=== PATIENT | female | born 1950 | race Caucasian/White ===

== ENCOUNTER 2017-11-28 01:18 | Emergency (ER) | payer MEDICARE, OTHER ==
[~2017-11-28] VITALS: Ht 172.7 cm; Wt 112.3 kg
--- OUTSIDE RECORDS SUMMARY | ~2017-11-28 | XMS | Clinical Summary ---
Demographics + + + | Address | [address] | | | [place] [address] | + + + | Home Phone | | + + + | Preferred Language | Unknown | + + + | Marital Status | | + + + | Alevism Affiliation | 1001 | + + + | Race | Unknown | + + + | Ethnic Group | Unknown | + + + Author + + + | Author | [facility] | | | and [place] | + + + | Organization | [facility] | | | and [place] | + + + | Address | Unknown | + + + | Phone | Unavailable | + + + Support + + + + + | Name | Relationship | Address | Phone | + + + + + | Holger Garcia | ECON | [address] | | | | [place] | | | | | [address] | | + + + + + | Melanie Montes | ECON | Unknown | | + + + + + Care Team Providers + +------+ + | Care Cutter Operator Tile Name | Role | Phone | + +------+ + | Stacy Bean MD | PP | | + +------+ + Allergies + + + + + + | Active Allergy | Reactions | Severity | Noted | Comments | | | | | Date | | + + + + + + | Ondansetron | Other (See Comments) | | 08/14/20 | Patient reports | | | | | 15 | "jerky movements | | | | | | unable to control" | + + + + + + Current Medications + + +-------+---------+------+------+-------+ | Prescription | Sig. | Disp. | Refills | Star | End | Statu | | | | | | t | Date | s | | | | | | Date | | | + + +-------+---------+------+------+-------+ | potassium chloride | Take 20 mEq by mouth | | | | | Activ | | (CHACHO-JILL) 20 MEQ | 4 times daily. | | | | | e | | packet | | | | | | | + + +-------+---------+------+------+-------+ | lovastatin | Take 40 mg by mouth | | | | | Activ | | (MEVACOR) 40 MG | nightly. | | | | | e | | tablet | | | | | | | + + +-------+---------+------+------+-------+ | oxyCODONE 10 MG | Take 10 mg by mouth | | | | | Activ | | TABS | every 6 hours as | | | | | e | | | needed. | | | | | | + + +-------+---------+------+------+-------+ | allopurinol | Take 100 mg by mouth | | | | | Activ | | (ZYLOPRIM) 100 mg | 2 times daily. | | | | | e | | tablet | | | | | | | + + +-------+---------+------+------+-------+ | DULoxetine | Take 60 mg by mouth | | | | | Activ | | (CYMBALTA) [address] | Daily. | | | | | e | | capsule | | | | | | | + + +-------+---------+------+------+-------+ | doxazosin | Take 4 mg by mouth | | | | | Activ | | (CARDURA) 4 mg | nightly. | | | | | e | | tablet | | | | | | | + + +-------+---------+------+------+-------+ | aspirin 81 MG | Take 81 mg by mouth | | | | | Activ | | tablet | Daily. | | | | | e | + + +-------+---------+------+------+-------+ | diazepam (VALIUM) | Take 1 mg by mouth | | | | | Activ | | 2 mg tablet | as needed for | | | | | e | | | Anxiety. | | | | | | + + +-------+---------+------+------+-------+ | pantoprazole | Take 40 mg by mouth | | | | | Activ | | (PROTONIX) 40 mg | every morning | | | | | e | | tablet | (before breakfast). | | | | | | + + +-------+---------+------+------+-------+ | levothyroxine | Take 75 mcg by mouth | | | | | Activ | | (SYNTHROID, | every morning | | | | | e | | LEVOTHROID) 75 MCG | (before breakfast). | | | | | | | tablet | | | | | | | + + +-------+---------+------+------+-------+ | ECHINACEA EXTRACT | Take 1 tablet by | | | | | Activ | | PO | mouth Daily. | | | | | e | + + +-------+---------+------+------+-------+ | Psyllium (NATURAL | Take by mouth | | | | | Activ | | FIBER LAXATIVE PO) | Daily. | | | | | e | + + +-------+---------+------+------+-------+ | Multiple | Take 1 tablet by | | | | | Activ | | Vitamins-Minerals | mouth Daily. | | | | | e | | (OCUVITE PO) | | | | | | | + + +-------+---------+------+------+-------+ | Multiple | Take by mouth. | | | | | Activ | | Vitamins-Minerals | | | | | | e | | (CENTRUM SILVER PO) | | | | | | | + + +-------+---------+------+------+-------+ | metFORMIN | Take 500 mg by mouth | | | | | Activ | | (GLUCOPHAGE) 500 mg | 2 times daily (with | | | | | e | | tablet | breakfast & | | | | | | | | dinner). | | | | | | + + +-------+---------+------+------+-------+ | gabapentin | Take 800 mg by mouth | | | | | Activ | | (NEURONTIN) 800 MG | 3 times daily. | | | | | e | | tablet | Takes 2 tablets 3 | | | | | | | | times daily | | | | | | + + +-------+---------+------+------+-------+ Active Problems + + + | Problem | Noted Date | + + + | Foraminal stenosis of cervical region | 06/02/2016 | + + + | Cervical radiculopathy | 06/02/2016 | + + + | Lumbar spinal stenosis- L3/L4 severe | 06/02/2016 | + + + | Bilateral lumbar radiculopathy | 06/02/2016 | + + + | Neck pain | 06/14/2015 | + + + | DDD (degenerative disc disease), cervical | 06/14/2015 | + + + | Facet arthritis of cervical region (HCC) | 06/14/2015 | + + + | Hyperreflexia | 06/14/2015 | + + + | Paresthesias | 06/14/2015 | + + + | Arthritis of hand, left | 06/14/2015 | + + + | Arthritis of hand, right | 06/14/2015 | + + + | Chronic radicular low back pain | 06/14/2015 | + + + Encounters +--------+ + + + + | Date | Type | Specialty | Care Team | Description | +--------+ + + + + | 11/12/ | Hospital | | [place], | Bilateral lumbar | | 2017 | Encounter | | ROHAN Chris | radiculopathy; | | | | | [facility] | Chronic radicular | | | | | | low back pain; | | | | | | Foraminal stenosis | | | | | | of cervical region; | | | | | | Paresthesias | +--------+ + + + + | 10/29/ | Hospital | | [place], | Cervical | | 2017 | Encounter | | ROHAN Chris | radiculopathy; DDD | | | | | Casing ManNallely | (degenerative disc | | | | | Valdez Kent, | disease), cervical; | | | | | MD | Neck pain; | | | | | | Paresthesias; | | | | | | Hyperreflexia | +--------+ + + + + | 10/29/ | Office | | [place], | Cervical | | 2018 | Visit | | ROHAN Chris | radiculopathy | | | | | | (Primary Dx); DDD | | | | | | (degenerative disc | | | | | | disease), cervical; | | | | | | Neck pain; Bilateral | | | | | | lumbar | | | | | | radiculopathy; | | | | | | Chronic radicular | | | | | | low back pain; | | | | | | Foraminal stenosis | | | | | | of cervical region; | | | | | | Paresthesias; | | | | | | Hyperreflexia | +--------+ + + + + from Last 3 Months Family History + + +------+ + | Medical History | Relation | Name | Comments | + + +------+ + | Alzheimer's disease | Mother | | | + + +------+ + | Arthritis | Mother | | | + + +------+ + | Hypertension | Mother | | | + + +------+ + | Heart disease | Other | | Unknown relation | + + +------+ + | Cancer | Paternal | | | | | Grandfath | | | | | er | | | + + +------+ + + +------+ + + | Relation | Name | Status | Comments | + +------+ + + | Child | | Alive | | + +------+ + + | Child | | Alive | | + +------+ + + | Child | | Alive | | + +------+ + + | Father | | | | | | | (Age | | | | | 89) | | + +------+ + + | Mother | | | | | | | (Age | | | | | 73) | | + +------+ + + | Other | | | | + +------+ + + | Paternal Grandfather | | | | | | | (Age | | | | | 82) | | + +------+ + + | Paternal Grandmother | | | | | | | (Age | | | | | 76) | | + +------+ + + | Sister | | | | | | | (Age | | | | | 57) | | + +------+ + + Social History + +-------+ +--------+------+ | Tobacco Use | Types | Packs/Day | Years | Date | | | | | Used | | + +-------+ +--------+------+ | Never Smoker | | | | | + +-------+ +--------+------+ + +---+---+---+ | Smokeless Tobacco: | | | | | Never Used | | | | + +---+---+---+ + + +---------+ + | Alcohol Use | Drinks/We | oz/Week | Comments | | | ek | | | + + +---------+ + | No | 0 | 0.0 | | | | Standard | | | | | drinks or | | | | | | | | | | equivalen | | | | | t | | | + + +---------+ + + + + | Sex Assigned at | Date Recorded | | | | + + + | Not on file | | + + + Last Filed Vital Signs + + + + | Vital Sign | Reading | Time Taken | + + + + | Blood Pressure | 148/77 | 11/12/2017 1032 PDT | + + + + | Pulse | 73 | 10/29/2017 1113 PST | + + + + | Temperature | - | - | + + + + | Respiratory Rate | 18 | 11/25/2016 1027 PDT | + + + + | Oxygen Saturation | - | - | + + + + | Inhaled Oxygen | - | - | | Concentration | | | + + + + | Weight | 119.3 kg (263 lb) | 10/29/20171112 PST | + + + + | Height | 172.7 cm (5' 8") | 10/29/20171112 PST | + + + + | Body Mass Index | 39.99 | 10/29/20171112 PST | + + + + Plan of Treatment + + + + + | Health Maintenance | Due Date | Last Done | Comments | + + + + + | Hepatitis C | | | | | Screening | 0 | | | + + + + + | Vaccine: | | | | | Dtap/Tdap/Td (1 - | 9 | | | | Tdap) | | | | + + + + + | BREAST CANCER | | | | | SCREENING (MAMM Q2 | 0 | | | | YEARS 50-74) | | | | + + + + + | COLON CANCER | | | | | SCREENING | 0 | | | | (COLONOSCOPY EVERY | | | | | 10 YEARS 50-75) | | | | + + + + + | Vaccine: Zoster (#1) | | | | | | 0 | | | + + + + + | Vaccine: | | | | | Pneumococcal 65+ | 5 | | | | Low/Medium Risk (1 | | | | | of 2 - PCV13) | | | | + + + + + | Vaccine: Influenza | | | | | (Season Ended) | 8 | | | + + + + + Results [facility] Lumbar Transforaminal (11/12/2017 1018) + + + | Specimen | Performing Laboratory | + + + | | [facility] | + + + + + | Narrative | + + | 11/12/2017 Bilateral Transforaminal Epidural Steroid Injections Diagnosis: | | Lumbar radiculopathy ICD-10 Code M54.16 Elisabeth Garcia presents to the | | fluoroscopy suite for fluoroscopically-guided bilateral L4-L5 transforaminal epidural | | steroid injections as part of conservative management for chronic pain with lumbar | | radiculopathy and degenerative disc disease. After informed consent was obtained, the | | patient lay in the prone position on the fluoroscopy table. The areas were identified | | under fluoroscopic guidance. The areas were prepped and draped in sterile fashion. A | | 25-gauge, 1.5-inch needle was inserted into each region and approximately 3 mL of | | buffered 1% lidocaine was infused. Then, a 22-gauge spinal needle was inserted into | | the posterior superior transforaminal space bilaterally and advanced into the | | epidural space under fluoroscopic guidance. Confirmation into the epidural space was | | obtained with infusion of approximately 1 mL of Omnipaque contrast which showed | | epidural flow as well as nerve sheath flow. Then, a combination of 2 mL of 1% | | lidocaine and 1.5 mL of 10 mg/mL dexamethasone was infused, divided between the two | | sides. The patient tolerated the procedure well without complications. Pre- and | | post-procedure blood pressures were stable. The patient was given verbal as well as | | written follow-up instructions. Prior to the start of the procedure, the | | following were performed and/or verified, including correct patient identity, correct | | site/side marked and visible, agreement on the procedure to be done, correct patient | | positioning and an accurate procedure consent form. Any safety precautions based on | | clinical history and/or medication use have been addressed. I personally performed the | | procedure above. Estimated blood loss: Minimal Complications: None Findings: As | | expected Anesthesia: Local 1% Lidocaine | + + [facility] Cervical Thoracic Interlaminar (10/29/2017 1412) + + + | Specimen | Performing Laboratory | + + + | | [facility] | + + + + + | Narrative | + + | 10/29/2017 CERVICAL INTERLAMINAR EPIDURAL STEROID INJECTION CLINICAL HISTORY: | | ICD-10 CODE M54.12 CERVICAL RADICULOPATHY Elisabeth Garcia presents to the | | fluoroscopy suite for a fluoroscopically-guided C7-T1 interlaminar epidural steroid | | injection, left of midline, as part of conservative management for chronic pain with | | cervical radiculopathy and degenerative disc disease. After informed consent was | | obtained, the patient lay in the prone position on the fluoroscopy table. The area was | | identified under fluoroscopic guidance. The area was prepped and draped in sterile | | fashion. A 25-gauge, 1.5-inch needle was inserted into this region and approximately 3 | | mL of buffered 1% lidocaine was infused. Then a 22-gauge epidural needle was advanced | | into the epidural space at the C7-T1 level. Confirmation into the epidural space | | was obtained with loss of resistance, as well as infusion of approximately 1 mL of | | Isovue contrast which showed epidural flow. Then, a combination of 3 mL of normal | | saline and 1 mL of 10 mg/mL dexamethasone was infused. The patient tolerated the | | procedure well without complications. Pre- and post-procedure blood pressures were | | stable. The patient was given verbal as well as written followup instructions. | | Prior to the start of the procedure, the following were performed and verified, | | including correct patient identity, correct site/side marked and visible, agreement on | | the procedure to be done, correct patient positioning and an accurate procedure | | consent form. Any safety precautions based on clinical history and/or medication use | | have been addressed. I personally performed the procedure above. Estimated | | blood loss: Minimal Complications: None Findings: As expected Anesthesia: Local | | 1% Lidocaine | + + from Last 3 Months Insurance + +--------+ +--------+ +---------+ | Payer | Benefi | Subscriber | Type | Phone | Address | | | t Plan | ID | | | | | | / | | | | | | | Group | | | | | + +--------+ +--------+ +---------+ | [employer] | [employer] | [id number] | Indemn | | | | | CELIS | | ity | | | | | LIFE | | | | | | | MDCR | | | | | | | SUPPL | | | | | + +--------+ +--------+ +---------+ | MEDICARE | MEDICA | [id number] | Medica | [phone] | | | RE | | [phone] | [phone] | | | | PART A | | | | | | | AND B | | | | | + +--------+ +--------+ +---------+ + +--------+ +--------+ + + | Guarantor Name | Accoun | Relation to | Date | Phone | Billing Address | | | t Type | Patient | of | | | | | | | | | | + +--------+ +--------+ + + | ELISABETH GARCIA | Person | Self [birth year] | Home: | [address] | | | [place] | | 1950 | [phone] | [place] [address] | | | deanna | | | [phone] | | + +--------+ +--------+ + +
--- OUTSIDE RECORDS SUMMARY | ~2017-11-28 | XMS | Encounter Summary ---
Demographics + + + | Address | [address] | | | [place] [address] | + + + | Home Phone | | + + + | Preferred Language | Unknown | + + + | Marital Status | | + + + | Hinduism Affiliation | 1001 | + + + | Race | Unknown | + + + | Ethnic Group | Unknown | + + + Author + + + | Author | [facility] | | | and [place] | + + + | Organization | [facility] | | | and [place] | + + + | Address | Unknown | + + + | Phone | Unavailable | + + + Support + + + + + | Name | Relationship | Address | Phone | + + + + + | Holger Dong | ECON | [address] | | | | [place], [place] | | | | | [address] | | + + + + + | Melanie Montes | ECON | Unknown | | + + + + + Care Team Providers + +------+ + | Care Purchasing Internship Name | Role | Phone | + +------+ + | Stacy Bean MD | PCP | | + +------+ + Reason for Visit Service/Procedure (Urgent) +--------+--------+ + + + + | Status | Reason | Specialty | Diagnoses / | Referred By | Referred To | | | | | Procedures | Contact | Contact | +--------+--------+ + + + + | Closed | | Radiology | Diagnoses | | [facility] | | | | | Cervical | [place], | [address] | | | | | radiculopath | Valdez Avilez MD | [place], | | | | | y | [address] | [place] | | | | | Procedures | [place] | [address] | | | | | [place] | [place] | Phone: | | | | | DX/THER SBST | [address] | [phone] | | | | | INTRLMNR | Phone: | Fax: | | | | | CRV/THRC | [phone] | [phone] | | | | | W/IMG GDN | Fax: | | | | | | CT | [phone] | | | | | | TRIAMCINOLON | | | | | | | E ACET INJ | | | | | | | NOS, 10 MG | | | | | | | Appt:3 | | | | | | | C7/T1 ILESI | | | +--------+--------+ + + + + Encounter Details +--------+ + + + + | Date | Type | Department | Care Team | Description | +--------+ + + + + | 10/29/ | Hospital | [facility] | Bogdanowicz, | Cervical | | 2018 | Encounter | [facility] [address] | [facility] [address] | radiculopathy; DDD | | | | [place] | [address] [place] | (degenerative disc | | | | [place] [address] | [place] [address] | disease), cervical; | | | | [phone] | [phone] | Neck pain; | | | | | | Paresthesias; | | | | | Director Of Business Development, [facility] | Hyperreflexia | | | | | Valdez Kent, | | | | | | MD [address] | | | | | | [place], [place] | | | | | | [address] | | | | | | | | +--------+ + + + + Social History + +-------+ +--------+------+ [...] on file | | + + + as of this encounter Last Filed Vital Signs + +---------+ + | Vital Sign | Reading | Time Taken | + +---------+ + | Blood Pressure | 157/82 | 10/29/2017 1431 PST | + +---------+ + | Pulse | - | - | + +---------+ + | Temperature | - | - | + +---------+ + | Respiratory Rate | - | - | + +---------+ + | Oxygen Saturation | - | - | + +---------+ + | Inhaled Oxygen | - | - | | Concentration | | | + +---------+ + | Weight | - | - | + +---------+ + | Height | - | - | + +---------+ + | Body Mass Index | - | - | + +---------+ + in this encounter Medications at Time of Discharge + + +-------+---------+--------+ + | Medication | Sig. | Disp. | Refills | Start | End Date | | | | | | Date | | + + +-------+---------+--------+ + | allopurinol | Take 100 mg by mouth | | | | | | (ZYLOPRIM) 100 mg | 2 times daily. | | | | | | tablet | | | | | | + + +-------+---------+--------+ + | aspirin 81 MG | Take 81 mg by mouth | | | | | | tablet | Daily. | | | | | + + +-------+---------+--------+ + | diazepam (VALIUM) | Take 1 mg by mouth | | | | | | 2 mg tablet | as needed for | | | | | | | Anxiety. | | | | | + + +-------+---------+--------+ + | doxazosin | Take 4 mg by mouth | | | | | | (CARDURA) 4 mg | nightly. | | | | | | tablet | | | | | | + + +-------+---------+--------+ + | DULoxetine | Take 60 mg by mouth | | | | | | (CYMBALTA) [address] | Daily. | | | | | | capsule | | | | | | + + +-------+---------+--------+ + | ECHINACEA EXTRACT | Take 1 tablet by | | | | | | PO | mouth Daily. | | | | | + + +-------+---------+--------+ + | gabapentin | Take 800 mg by mouth | | | | | | (NEURONTIN) 800 MG | 3 times daily. | | | | | | tablet | Takes 2 tablets 3 | | | | | | | times daily | | | | | + + +-------+---------+--------+ + | levothyroxine | Take 75 mcg by mouth | | | | | | (SYNTHROID, | every morning | | | | | | LEVOTHROID) 75 MCG | (before breakfast). | | | | | | tablet | | | | | | + + +-------+---------+--------+ + | lovastatin | Take 40 mg by mouth | | | | | | (MEVACOR) 40 MG | nightly. | | | | | | tablet | | | | | | + + +-------+---------+--------+ + | metFORMIN | Take 500 mg by mouth | | | | | | (GLUCOPHAGE) 500 mg | 2 times daily (with | | | | | | tablet | breakfast & | | | | | | | dinner). | | | | | + + +-------+---------+--------+ + | Multiple | Take by mouth. | | | | | | Vitamins-Minerals | | | | | | | (CENTRUM SILVER PO) | | | | | | + + +-------+---------+--------+ + | Multiple | Take 1 tablet by | | | | | | Vitamins-Minerals | mouth Daily. | | | | | | (OCUVITE PO) | | | | | | + + +-------+---------+--------+ + | oxyCODONE 10 MG | Take 10 mg by mouth | | | | | | TABS | every 6 hours as | | | | | | | needed. | | | | | + + +-------+---------+--------+ + | pantoprazole | Take 40 mg by mouth | | | | | | (PROTONIX) 40 mg | every morning | | | | | | tablet | (before breakfast). | | | | | + + +-------+---------+--------+ + | potassium chloride | Take 20 mEq by mouth | | | | | | (KLOR-CON) 20 MEQ | 4 times daily. | | | | | | packet | | | | | | + + +-------+---------+--------+ + | Psyllium (NATURAL | Take by mouth | | | | | | FIBER LAXATIVE PO) | Daily. | | | | | + + +-------+---------+--------+ + as of this encounter Plan of Treatment Not on fileas of this encounter Results [facility] Cervical Thoracic Interlaminar (10/29/2017 1412) + + + | Specimen | Performing Laboratory | + + + | | [facility] | + + + + + | Narrative | + + | 10/29/2017 CERVICAL INTERLAMINAR EPIDURAL STEROID INJECTION CLINICAL HISTORY: | | ICD-10 CODE M54.12 CERVICAL RADICULOPATHY Angelika Dong presents to the | | fluoroscopy suite [...] | | 1% Lidocaine | + + in this encounter Visit Diagnoses + + | Diagnosis | + + | Cervical radiculopathy | + + | Brachial neuritis or radiculitis nos | + + | DDD (degenerative disc disease), cervical | + + | Degeneration of cervical intervertebral disc | + + | Neck pain | + + | Cervicalgia | + + | Paresthesias | + + | Disturbance of skin sensation | + + | Hyperreflexia | + + | Abnormal reflex | + + Administered Medications + +--------+ +-------+------+------+ | Medication Order | MAR | Action | Dose | Rate | Site | | | Action | Date | | | | + +--------+ +-------+------+------+ | dexamethasone (PF) 10 mg/mL | Given | 10/29/2017 | 10 mg | | | | injection 10 mg 10 mg, Other, | | 14:25 | | | | | ONCE, [facility] 10/29/17 at 1430, For 1 | | PST | | | | | dose | | | | | | + +--------+ +-------+------+------+ +---+---+ | | | +---+---+ + +-------+ +-------+---+---+ | iohexol (OMNIPAQUE 300) 300 | Given | 10/29/2017 | 4 mLs | | | | mg/mL injection 4 mL 4 mL, | | 14:20 | | | | | Other, ONCE, [facility] 10/29/17 at 1430, | | PST | | | | | For 1 dose | | | | | | + +-------+ +-------+---+---+ +---+---+ | | | +---+---+ + +-------+ +-------+---+---+ | lidocaine buffered 1.5% | Given | 10/29/2017 | 3 mLs | | | | injection 3 mL 3 mL, Other, | | 14:15 | | | | | ONCE, [facility] 10/29/17 at 1430, For 1 | | PST | | | | | dose, FACET | | | | | | + +-------+ +-------+---+---+ +---+---+ | | | +---+---+ in this encounter"
--- OUTSIDE RECORDS SUMMARY | ~2017-11-28 | XMS | Encounter Summary ---
Demographics + + + | Address | [address] | | | [place] [address] | + + + | Home Phone | | + + + | Preferred Language | Unknown | + + + | Marital Status | | + + + | Episcopalian Affiliation | 1001 | + + + | Race | Unknown | + + + | Ethnic Group | Unknown | + + + Author + + + | Author | [facility] | | | and Kirillana | + + + | Organization | [facility] | | | and [place]ana | [...] [place], [place] | | | | | [address] | | + + + + + | Melanie Montes | ECON | Unknown | | + + + + + Care Team Providers + +------+ + | Care Early Childhood Education Worker Name | Role | Phone | + +------+ + | Stacy Bean MD | PCP | | + +------+ + Reason for Visit Service/Procedure (Routine) +--------+--------+ + + + + | Status | Reason | Specialty | Diagnoses / | Referred By | Referred To | | | | | Procedures | Contact | Contact | +--------+--------+ + + + + | Closed | | Radiology | Diagnoses | | [facility] | | | | | Lumbar | [place], | [address] | | | | | radiculopath | Valdez Avilez MD | [place], | | | | | y | [address] | [place] | | | | | Procedures | [place] | [address] | | | | | [place] INJECT | [place] | Phone: | | | | | ANES/STEROID | [address] | [phone] | | | | | FORAMEN | Phone: | Fax: | | | | | LUMBAR/SACRA | [phone] | [phone] | | | | | [address] IMG | Fax: | | | | | | GUIDE ,1 | [phone] | | | | | | LEVEL LA | | | | | | | TRIAMCINOLON | | | | | | | E ACET INJ | | | | | | | NOS, 10 MG | | | | | | | Appt:11/12 | | | | | | | Bilat L4/5 | | | | | | | TFESI | | | +--------+--------+ + + + + Encounter Details +--------+ + + + + | Date | Type | Department | Care Team | Description | +--------+ + + + + | 11/12/ | Hospital | [facility] | [place], | Bilateral lumbar | | 2018 | Encounter | MED CTR XRAY [address] | ROHAN Chris [address] | radiculopathy; | | | | [address] [place] | [address] [place] | Chronic radicular | | | | [place] [address] | [place] [address] | low back pain; | | | | [phone] | [phone] | Foraminal stenosis | | | | | | of cervical region; | | | | | Care Companion Ws | Paresthesias | +--------+ + + + + Social [...] + +---------+ + | Blood Pressure | 148/77 | 11/12/2017 1032 PDT | + +---------+ + | Pulse | [...] fileas of this encounter Results [place] FREDERICK Lumbar Transforaminal (11/12/2017 1018) + + + | Specimen | Performing Laboratory | + + + | | [facility] | + + + + + | Narrative | + + | 11/12/2017 Bilateral Transforaminal Epidural Steroid Injections Diagnosis: | | Lumbar radiculopathy ICD-10 Code M54.16 Angelika Dong presents to the | | [...] Anesthesia: Local 1% Lidocaine | + + in this encounter Visit Diagnoses + + | Diagnosis | + + | Bilateral lumbar radiculopathy | + + | Chronic radicular low back pain | + + | Thoracic or lumbosacral neuritis or radiculitis, unspecified | + + | Foraminal stenosis of cervical region | + + | Spinal stenosis in cervical region | + + | Paresthesias | + + | Disturbance of skin sensation | + + Administered Medications + +--------+ +-------+------+------+ | Medication Order | MAR | Action | Dose | Rate | Site | | | Action | Date | | | | + +--------+ +-------+------+------+ | dexamethasone (PF) 10 mg/mL | Given | | 15 mg | | | | injection 15 mg 15 mg, Other, | | 8 10:30 | | | | | ONCE, [facility] 11/12/17 at 1045, For 1 | | PDT | | | | | dose | | | | | | + +--------+ +-------+------+------+ +---+---+ | | | +---+---+ + +-------+ +-------+---+---+ | iohexol (OMNIPAQUE 300) 300 | Given | | 4 mLs | | | | mg/mL injection 4 mL 4 mL, | | 8 10:25 | | | | | Other, ONCE, [facility] 11/12/17 at 1045, | | PDT | | | | | For 1 dose | | | | | | + +-------+ +-------+---+---+ +---+---+ | | | +---+---+ + +-------+ +-------+---+---+ | lidocaine (PF) 1% injection 2 | Given | | 2 mLs | | | | mL 2 mL, Other, ONCE, [facility] | | 8 10:30 | | | | | 11/12/17 at 1045, For 1 dose, | | PDT | | | | | EPIDURAL | | | | | | + +-------+ +-------+---+---+ +---+---+ | | | +---+---+ + +-------+ +-------+---+---+ | lidocaine buffered 1.5% | Given | | 6 mLs | | | | injection 6 mL 6 mL, Other, | | 8 10:20 | | | | | ONCE, [facility] 11/12/17 at 1045, For 1 | | PDT | | | | | dose, INTRADERMAL | | | | | | + +-------+ +-------+---+---+ +---+---+ | | | +---+---+ in this encounter"
--- OUTSIDE RECORDS SUMMARY | ~2017-11-28 | XMS | Clinical Summary ---
Demographics + + + | Address | [address] | | | [place] [address] | + + + | Home Phone | | + + + | Preferred Language | Unknown | + + + | Marital Status | | + + + | Druze Affiliation | 1001 | + + + | Race | Unknown | + + + | Ethnic Group | Unknown | + + + Author + + + | Author | [facility] | | | and [place]ana | + + + | Organization | [facility] | | | and [place]ana | + + + | Address | Unknown | + + + | Phone | Unavailable | + + + Support + + + + + | Name | Relationship | Address | Phone | + + + + + | Holger Garcia | ECON | [address] | | | | | [place] | | | | | [address] | | + + + + + | Melanie Montes | ECON | Unknown | | + + + + + Care Team Providers + +------+ + | Care Operating Room Tech Name | Role | Phone | + [...] | radiculopathy; | | | | | Motor Block Mechanic, [facility] | Chronic radicular | | | [...] radiculopathy; DDD | | | | | Motor Block MechanicNallely | (degenerative disc | | | | [...] | 1950 | [phone] | [place] [address] | | | deanna | | | [phone] | | + +--------+ +--------+ + +
--- OUTSIDE RECORDS SUMMARY | ~2017-11-28 | XMS | Encounter Summary ---
Demographics + + + | Address | [address] | | | [place] [address] | + + + | Home Phone | | + + + | Preferred Language | Unknown | + + + | Marital Status | | + + + | Advent Affiliation | 1001 | + + + | Race | Unknown | + + + | Ethnic Group | Unknown | + + + Author + + + | Author | [facility] | | | and Kirillana | + + + | Organization | [facility] | | | and [place]ana | + + + | Address | Unknown | + + + | Phone | Unavailable | + + + Support + + + + + | Name | Relationship | Address | Phone | + + + + + | Holger Dong | ECON | [address] | | | | | [place] | | | | | [address] | | + + + + + | Melanie Montes | ECON | Unknown | | + + + + + Care Team Providers + +------+ + | Care Machine Repairer Name | Role | Phone | + +------+ + | Stacy Bean MD | PCP | | + +------+ + Reason for Visit + + + | Reason | Comments | + + + | Neck Pain | neck pain radiating into bilateral hands | + + + | Back Pain | low back pain | + + + Encounter Details +--------+---------+ + + + | Date | Type | Department | Care Team | Description | +--------+---------+ + + + | 10/29/ | Office | [facility] [place] | [place], | Cervical | | 2018 | Visit | PHYSIATRY [address] | [place] [address] | radiculopathy | | | | [place], | [address] [place] | (Primary Dx); DDD | | | | [place] [address] | [place] [address] | (degenerative disc | | | | [phone] | [phone] | disease), cervical; | | | | [...] | | | | | Hyperreflexia | +--------+---------+ + + + Social History + +-------+ [...] this encounter Last Filed Vital Signs + + + + | Vital Sign | Reading | Time Taken | + + + + | Blood Pressure | 132/73 | 10/29/2017 1113 PST | + + + + | Pulse | 73 | 10/29/2017 1113 PST | + + + + | Temperature | - | - | + + + + | Respiratory Rate | - | - | + + + + | Oxygen [...] | Body Mass Index | 39.99 | 10/29/2017 1113 PST | + + + + in this encounter Instructions Patient Instructions - Dot Barreto PA-C - 10/29/2017 1120 PST1) Cervical epidural injection today with Dr. Canseco 2) Lumbar epidural injection in 2 week dizziness is most likely vertigo from Benign Positional Vertigo Follow-up at the hospital thirty minutes before your scheduled procedure to allow for time to check in. You may eat and drink as usual on the day of the procedure. If you are scheduled for an epidural injection do not take any blood thinning medications f or at least 5-7 days prior to your procedure unless you have been instructed by another phys ician not to discontinue blood thinning medications. If you are having a procedure other than an epidural injection (i.e. facet injection, media l branch block, SI joint injection or other joint injection) it is not absolutely necessary to discontinue blood thinning medications but doing so will decrease the risk of bruising or bleeding. If you have had a prior stroke, DVT or PE or if you are taking blood thinning medication be cause you have atrial fibrillation, a prosthetic cardiac valve replacement or heart stenting do not stop taking your blood thinning medications unless you have permission from your car diologist or primary care provider. All other medications should be taken as usual on the day of the procedure. Common blood thinning medications include: Aspirin (a baby aspirin is o.k.) Ibuprofen (Advil or Motrin) Naproxen (Aleve) Nabumetone (Relafen) Clopidogrel (Plavix) Dipyridamole/ASA (Aggrenox) Warfarin (Coumadin) Dabigatran (Pradaxa) Rivaroxaban (Xarelto) There are many others. If you have questions about your medications and whether or not you should stop any medications please contact our office. If you are having an epidural injection or if you take any medication for relaxation/sedati on on the day of the procedure you must provide a armored car driver to take you home. For all procedur es it is recommended that someone else drive you home. in this encounter Progress Notes Dot Barreto PA-C - 10/29/2017 1120 PSTFormatting of this note may be different fro m the original. CHIEF COMPLAINT: Chief Complaint Patient presents with Neck Pain neck pain radiating into bilateral hands Back Pain low back pain HISTORY OF PRESENT ILLNESS: The patient is a 66 y.o. female being seen today for follow up complaint of neck pain. The patient has been seen for this complaint in the past, with ini tial visit started by Dr. Kent. She has received cervical epidural injections in the p ast. The last cervical epidural steroid injections were done 03/23/2017 and gave her at located within [facility] 50% relief. Her neck pain today is rated moderate level today. She reports her neck pain with worse wi th driving when she has to rotate her neck. It does radiate into both shoulders and down th e left greater than right arms. She describes the pain as aching, sharp and shooting. This neck pain comes and goes and her pain medications improve her symptoms. She also reports p ain in the hands, but states to have osteoarthritis, she also had a burning sensation of the hand and feet but was told by Dr. Coy that she has neuropathy. She is weaning herself o ff the oxycodone as she is only taking 1/4 pill/day. The patient does describe numbness of the 4th and 5th digits on the left primarily but report had a ulnar nerve release on the lef t performed by Dr. Kellogg. She denies any bowel or bladder incontinence. She also has low back pain with intermittent radiation into the right thigh. She has recei abhijeet lumbar epidural injection in the past, the last was a bilateral L4/L5 TFESI done 7 for lumbar spinal stenosis. She reports her back pain is worse with prolonged standing, wa lking and better with rest, sitting down and leaning on a grocery cart. She reports also he r low back pain is a mild, intermittent, aching sensation. She has tingling sensation into the thighs. She reports weakness of the legs with prolonged walking. She is currently walk ing with a walker, the distance she can walk is limited. Treatments for these complaints have included chiropractic treatment, physical therapy at [facility] which did not improve her symptoms. She is currently using oxycodone, gabap entin, tramadol , Cymbalta and diclofenac. Patient's medications, allergies, past medical, surgical, social and family histories were reviewed and updated as appropriate. CURRENT MEDICATIONS: Current Outpatient Prescriptions Medication Sig Dispense Refill allopurinol (ZYLOPRIM) 100 mg tablet Take 100 mg by mouth 2 times daily. aspirin 81 MG tablet Take 81 mg by mouth Daily. diazepam (VALIUM) 2 mg tablet Take 1 mg by mouth as needed for Anxiety. doxazosin (CARDURA) 4 mg tablet Take 4 mg by mouth nightly. DULoxetine (CYMBALTA) [address] capsule Take 60 mg by mouth Daily. ECHINACEA EXTRACT PO Take 1 tablet by mouth Daily. gabapentin (NEURONTIN) 800 MG tablet Take 800 mg by mouth 3 times daily. Takes 2 tablet s 3 times daily levothyroxine (SYNTHROID, LEVOTHROID) 75 MCG tablet Take 75 mcg by mouth every morning (before breakfast). lovastatin (MEVACOR) 40 MG tablet Take 40 mg by mouth nightly. metFORMIN (GLUCOPHAGE) 500 mg tablet Take 500 mg by mouth 2 times daily (with breakfast & dinner). Multiple Vitamins-Minerals (CENTRUM SILVER PO) Take by mouth. Multiple Vitamins-Minerals (OCUVITE PO) Take 1 tablet by mouth Daily. oxyCODONE 10 MG TABS Take 10 mg by mouth every 6 hours as needed. pantoprazole (PROTONIX) 40 mg tablet Take 40 mg by mouth every morning (before breakfas t). potassium chloride (KLOR-CON) 20 MEQ packet Take 20 mEq by mouth 4 times daily. Psyllium (NATURAL FIBER LAXATIVE PO) Take by mouth Daily. No current facility-administered medications for this visit. ALLERGIES: Allergies Allergen Reactions Ondansetron Other (See Comments) Patient reports "jerky movements unable to control" REVIEW OF SYSTEMS: A multisystem review of system checklist was reviewed with the patient and shows only the p ain and/or parasthesias and other complaints as in HPI. All remaining review of systems was negative. PHYSICAL EXAMINATION: Vitals: 10/29/17 1113 BP: 132/73 Pulse: 73 PainSc: 3 PainLoc: Neck Body mass index is 39.99 kg/m. GENERAL: The patient is well developed and well nourished. She does not appear uncomfortab le when seated. HEENT: HEAD/FACE: EYES: Normocephalic and atraumatic. There are no areas of recent trauma. Normal sclerae without icterus. SKIN Limited skin exam shows no significant rashes or lesions. There is a surgical scar in the anterior neck on the right from a prior thyroid surgery. There are no scars in the lum bar region. CHEST: The patient is in no acute respiratory distress with unlabored respirations. ABDOMEN: The patient is obese. NEUROLOGIC: The patient is awake, alert and oriented to time, place, person. She follows simple and complex commands. Her speech is fluent. She comprehends speech well. She has no apparent deficits with short or oysterman memory. She has appropriate fund of knowledge Cranial nerves 2-12 appear grossly intact. Sensory exam does show diminished sensation to light touch in the 4th and 5th digits of the left upper extremity and numbness in the feet bilaterally distally. REFLEX: RIGHT LEFT BICEPS 3+ 3+ BRACHIORADIALIS 3+ 3+ TRICEPS 3+ 3+ PATELLAR 3+ 3+ ACHILLES 3+ 3+ MUSCULOSKELETAL There is no tenderness in the midline of the cervical or thoracic spine. T here is no major palpable deformity of the spine. Straight leg raise and slump-sit are negative. Da's maneuver and impingement testing were negative for any groin pain. There was no tenderness to palpation over the greater tr ochanters or sacral sulci. The patient localized the majority of the pain to the L4/L5 shweta on and down the right lateral thigh Lumbar facet loading was negative. Strength testing sh owed 5/5 strength throughout the lower extremities. The patient was able to heel and toe wa lk without difficulty, she did have balance issues. There was no redness, effusion, warmth or joint line tenderness in the knees or ankles. Range of motion testing of the cervical spine was unremarkable. Spurling sign was negative. Shoulder examination shows well preserved range of motion with external rotation, internal rotation and abduction. Impingement testing was Negative. There was no tenderness over th e bicipital groove or over the AC joint. Speed's test was Negative. Empty can test was Nega tive. Strength testing, including strength testing of the infraspinatus, supraspinatus an d subscapularis, in bilateral upper extremities showed 5/5 strength with no focal weakness. RADIOGRAPHIC REVIEW: The patient's imaging was reviewed in detail with the patient today during the visit. CT o f the cervical spine shows cervical DDD, loss of disc space, facet arthritis and foraminal s tenosis, worse to the right at C6-C7 and to the left at C3-C4, C5-C6. Her lumbar CT shows spinal stenosis at L3-L4, lumbar DDD with lost of disc space. ASSESSMENT: Encounter Diagnoses Name Primary? Cervical radiculopathy Yes DDD (degenerative disc disease), cervical Neck pain Bilateral lumbar radiculopathy Chronic radicular low back pain Foraminal stenosis of cervical region Paresthesias Hyperreflexia PLAN: 1. The patient has had significant conservative care including medications (NSAIDS and chelsea cotics), PT (multiple sessions over the years) and health care coach. Unfortunately she cont inues to have significant discomfort. It appears to me that the pain is primarily coming fr om the cervical stenosis. I did feel that she would be a good candidate for interventional procedures and I offered C7/T1 ILESI as this helped in the past. Two weeks later she will u ndergo a bilateral L4/L5 TFESI as that has also helped significantly in the past. 2. We discussed conservative treatments to include physical therapy which she reports she has done at [facility]. 3. She is already taking neuropathic pain medications like Cymbalta and gabapentin and rep orts relief with these medications plus her primary care doctor is prescribing oxycodone. I have not made any changes in her medications. 4. She will follow up PRN for more injections. ELECTRONICALLY EDITED AND SIGNED BY: Dot Barreto PA-C, 10/29/2017 CC: Maranda this encounter Plan of Treatment Not on [...] Diagnosis | + + | Cervical radiculopathy - Primary | + + | Brachial neuritis or radiculitis nos | + + | DDD (degenerative disc disease), cervical | + + | Degeneration of cervical intervertebral disc | + + | Neck pain | + + | Cervicalgia | + + | Bilateral lumbar radiculopathy [...]
--- OUTSIDE RECORDS SUMMARY | ~2017-11-28 | XMS | Encounter Summary ---
Demographics + + + | Address | [address] | | | [place] [address] | + + + | Home Phone | | + + + | Preferred Language | Unknown | + + + | Marital Status | | + + + | Gnosticism Affiliation | 1001 | + + + | Race | Unknown | + + + | Ethnic Group | Unknown | + + + Author + + + | Author | [facility] | | | and [place] | + + + | Organization | [facility] | | | and [place] [...] [place], [place] | | | | | [address] | | + + + + + | Melanie Montes | ECON | Unknown | | + + + + + Care Team Providers + +------+ + | Care Salesforce Business Analyst Name | Role | Phone | + [...] | Lumbar | [place], | [address] | | | | | radiculopath | Valdez Avilez MD | [employer], | | | | | y | [address] | [place] | | | | | Procedures | [place] | [address] | | | | | [place] INJECT | [place] | Phone: | | | | | ANES/STEROID | [address] | [phone] | | | | | FORAMEN | Phone: | Fax: | | | | | LUMBAR/SACRA | [phone] | [phone] | | | | | [address] IMG | Fax: | | | | | | GUIDE ,1 | [phone] | | | | | | LEVEL PA | | | | | | | [...] + + | 11/12/ | Hospital | [facility] | [place], | Bilateral lumbar | | 2018 | Encounter | MED CTR XRAY [address] | [address] | radiculopathy; | | | | [place] | [address] [place] | Chronic radicular | | | | [place] [address] | [place] [address] | low back pain; | | | | [phone] | [phone] | Foraminal stenosis | | | | | | of cervical region; | | | | | [facility] Nurse Ws | Paresthesias | +--------+ + + [...] 10:30 | | | | | ONCE, [facility] 11/12/17 at 1045, For 1 | | PDT | | | | | dose | | | | | | + +--------+ +-------+------+------+ +---+---+ | | | +---+---+ + +-------+ +-------+---+---+ | iohexol (OMNIPAQUE 300) 300 | Given | | 4 mLs | | | | mg/mL injection 4 mL 4 mL, | | 8 10:25 | | | | | Other, ONCE, [facility] 11/12/17 at 1045, | | PDT | [...] 10:20 | | | | | ONCE, [facility] 11/12/17 at 1045, For 1 | | PDT | | | | | dose, INTRADERMAL | | | | | | + +-------+ +-------+---+---+ +---+---+ | | | +---+---+ in this encounter"
--- OUTSIDE RECORDS SUMMARY | ~2017-11-28 | XMS | Encounter Summary ---
Demographics + + + | Address | [address] | | | [place] [address] | + + + | Home Phone | | + + + | Preferred Language | Unknown | + + + | Marital Status | | + + + | Scientologist Affiliation | 1001 | + + + | Race | Unknown | + + + | Ethnic Group | Unknown | + + + Author + + + | Author | [facility] | | | and [place] | + + + | Organization | [facility] | | | and [place] | + + + | Address | Unknown | + + + | Phone | Unavailable | + + + Support + + + + + | Name | Relationship | Address | Phone | + + + + + | Holger Dong | ECON | [address] | | | | | [place], [place] | | | | | [address] | | + + + + + | Melanie Montes | ECON | Unknown | | + + + + + Care Team Providers + +------+ + | Care Certified Art Therapist Name | Role | Phone | + [...] | Cervical | [place], | [address] | | | | | radiculopath | Valdez Avilez MD | [place], | | | | | y | [address] | [place] | | | | | Procedures | [place] | [address] | | | | | [place] | [place] | Phone: | | | | | DX/THER SBST | [address] | [phone] | | | | | INTRLMNR | Phone: | Fax: | | | | | CRV/THRC | [phone] | [phone] | | | | | W/IMG GDN | Fax: | | | | | | [place] | [phone] | | | | | | TRIAMCINOLON [...] + + | 10/29/ | Hospital | [facility] | Bogdan[place], | Cervical | | 2018 | Encounter | MED CTR XRAY [address] | DotPHONG-C [address] | radiculopathy; DDD | | | | [place] | [address] [place] | (degenerative disc | | | | [place] [address] | [place] [address] | disease), cervical; | | | | [phone] | [phone] | Neck pain; | | | | | | Paresthesias; | | | | | Service Order Expediter, [facility] | Hyperreflexia | | | | | Valdez Kent, | | | | | | MD [address] | | | | | | [place], [place] | | | | | | [address] | | | | | | | [...] 14:25 | | | | | ONCE, [facility] 10/29/17 at 1430, For 1 | | PST | | | | | dose | | | | | | + +--------+ +-------+------+------+ +---+---+ | | | +---+---+ + +-------+ +-------+---+---+ | iohexol (OMNIPAQUE 300) 300 | Given | 10/29/2017 | 4 mLs | | | | mg/mL injection 4 mL 4 mL, | | 14:20 | | | | | Other, ONCE, [facility] 10/29/17 at 1430, | | PST | | | | | For 1 dose | | | | | | + +-------+ +-------+---+---+ +---+---+ | | | +---+---+ + +-------+ +-------+---+---+ | lidocaine buffered 1.5% | Given | 10/29/2017 | 3 mLs | | | | injection 3 mL 3 mL, Other, | | 14:15 | | | | | ONCE, [facility] 10/29/17 at 1430, For 1 | | PST | | | | | dose, FACET | | | | | | + +-------+ +-------+---+---+ +---+---+ | | | +---+---+ in this encounter"
--- OUTSIDE RECORDS SUMMARY | ~2017-11-28 | XMS | Encounter Summary ---
Demographics + + + | Address | [address] | | | [place] [address] | + + + | Home Phone | | + + + | Preferred Language | Unknown | + + + | Marital Status | | + + + | Temple Affiliation | 1001 | + + + | Race | Unknown | + + + | Ethnic Group | Unknown | + + + Author + + + | Author | [facility] | | | and [place] | + + + | Organization | [facility] | | | and [place] [...] [place] | | | | | [id number] | | + + + + + | Melanie Montes | ECON | Unknown | | + + + + + Care Team Providers + +------+ + | Care Homoeopath Name | Role | Phone | + [...] + + | 10/29/ | Office | [facility] [place] | Bogdanowicz, | Cervical | | 2018 | Visit | PHYSIATRY [address] | ROHAN [address] | radiculopathy | | | | [place], | [address] [place] | (Primary Dx); DDD | | | | [place] [address] | [place] [address] | (degenerative disc | | | | [phone] | [phone] | disease), cervical; | | | | [...] of the procedure you must provide a jitney driver to take you home. For all [...] were done 03/23/2017 and gave her at [facility] 50% relief. Her neck pain today is [...] have included chiropractic treatment, physical therapy at [facility] which did not improve her symptoms. She [...] has no apparent deficits with short or intensive care medicine specialist memory. She has appropriate fund of knowledge [...] PT (multiple sessions over the years) and care program resident. Unfortunately she cont inues to have significant [...] which she reports she has done at [facility]. 3. She is already taking neuropathic [...]
[~2017-11-28 01:18] MED LIST: ALLEGRA ALLERGY60 MG PO; ALLOPURINOL100 MG PO; ASPIR-LOW81 MG PO; ASPIRIN EC81 MG PO; AVAPRO150 MG PO; BACTRIM DS TAB1 EACH PO; BIOTIN5 M1 PO; CENTRUM SILVER1 EAC3 PO; CIPRO500 MG PO; CITALOPRAM HBR40 MG PO; CLONIDINE HCL0.1 MG PO; COZAAR25 MG PO; CRANBERRY300 MG PO; CYMBALTA30 MG PO; CYMBALTA60 MG PO; DIAZEPAM2 MG PO; DICLOFENAC SODI75 MG PO; DOXAZOSIN MESYLA1 MG PO; DOXAZOSIN MESYLA4 MG PO; ECHINACEA400 MG PO; FLUTICASONE PRO16 GM NS; GLUCOSAMIN-CHO1 EACH PO; HYDROCODON-ACE1 EA11 PO; HYDROCODONE-IB1 EACH PO; HYZAAR 100-12.1 EACH PO; INVANZ1 GM IM; IRBESARTAN150 MG PO; KLOR-CON 1010 MEQ PO; KLOR-CON M2020 MEQ PO; LIOTHYRONINE S25 MCG PO; LIOTHYRONINE S50 MCG PO; LIOTHYRONINE SO5 MCG PO; LOPERAMIDE2 MG PO; LOSARTAN-HCTZ1 EAC2 PO; LOVASTATIN40 MG PO; MACROBID 100 M100 MG PO; NEURONTIN300 MG PO; NITROFURANTOIN100 MG PO; NORCO 7.5-3251 EACH PO; NORVASC10 MG PO; NORVASC5 MG PO; OCUVITE TABLET1 EAC1 PO; OXYCODONE HCL5 MG PO; OXYCODONE-ACET1 EAC1 PO; PAIN & FEVER500 MG PO; PANTOPRAZOLE SO40 MG PO; PERCOCET 5-3251 EACH PO; PHENTERMINE HCL30 MG PO; POTASSIUM CHLO20 ME1 PO; PRILOSEC OTC20 MG PO; PROBIOTIC & AC1 EACH PO; PROMETHAZINE HC25 M1 PO; PROPRANOLOL HCL20 MG PO; RA GLUCOSAMINE1 EAC6 PO; SLOW-MAG71.5 MG PO; SYNTHROID50 MCG PO; SYNTHROID75 MCG PO; TRAMADOL HCL50 MG PO; TRAZODONE HCL50 MG PO; VITAMIN C500 M1 PO; VITAMIN D1000 UNIT PO; VOLTAREN100 GM TOP; XALATAN2.5 ML OPTH; ZOFRAN ODT4 MG PO
[2017-11-28] MEDS ORDERED: METFORMIN HCL500 MG PO (01:27)
== END 2017-11-28 04:35 | disposition home or self-care (01) ==
LOC: ED 01:18
DX: R10.10 Upper abdominal pain, unspecified (principal); I10 Essential (primary) hypertension; Z87.891 Personal history of nicotine dependence; Z88.8 Allergy status to other drugs, medicaments and biological substances; Z79.899 Other long term (current) drug therapy
CPT/HCPCS: 80053; 81001; 83690; 85025; 87077; 87088; 87186; 96374; 96375; 99284; J1200; J2270; J2550; J2765; J7030

== ENCOUNTER 2018-09-24 19:04 | Emergency (ER) | payer MEDICARE, OTHER ==
[~2018-09-24] VITALS: Ht 172.7 cm; Wt 112.0 kg
[~2018-09-24 19:04] MED LIST changes: +METFORMIN HCL500 MG PO
== END 2018-09-24 21:10 | disposition home or self-care (01) ==
LOC: ED 19:04
DX: R10.10 Upper abdominal pain, unspecified (principal); F41.9 Anxiety disorder, unspecified; I10 Essential (primary) hypertension; K21.9 Gastro-esophageal reflux disease without esophagitis; Z87.891 Personal history of nicotine dependence; Z88.8 Allergy status to other drugs, medicaments and biological substances; Z79.899 Other long term (current) drug therapy; Z79.82 Long term (current) use of aspirin; Z79.84 Long term (current) use of oral hypoglycemic drugs
CPT/HCPCS: 80053; 81001; 83690; 85025; 96361; 96374; 96375; 99284-25; J1170; J2550; J7030

== ENCOUNTER 2021-02-15 22:55 | Inpatient (IN) | payer MEDICARE, OTHER ==
[~2021-02-15] VITALS: Ht 172.7 cm; Wt 108.9 kg
[~2021-02-15 22:55] MED LIST changes: -XALATAN2.5 ML OPTH; +XALATAN2.5 ML OU
--- NOTE | 2021-02-16 06:11 | NUR ---
PATIENT ARRIVE TO THE FLOOR VIA STRETCHER. PATIENT WAS ABLE TO VOID. PATIENT IS IN BED RESTING. ADMISSION COMPLETED. PATIENT DENIES ANY PAIN OR NAUSEA. IV FLUIDS INFUSING PER ORDER. PATIENTS NG IS TO LWIS. ALL QUESTIONS ANSWERED. OREINTED PATIENT TO CALL LIGHT. NO FURHTER NEEDS NOTED. CALL LIGHT IN REACH.
--- NOTE | 2021-02-16 07:30 | NUR ---
RECEIVED REPORT AROUND 0700, FOUND PT IN BED AWAKE WITH AT BEDSIDE. NO NEW CONCERNS WERE NOTED AT THAT TIME.
--- NOTE | 2021-02-16 09:00 | NUR ---
LOBES CLEAR, ABD TENDER TO TOUCH AND A BIT FIRM. ABD SOUNDS ABSENT IN THE UPPER QUADRANTS, LOWER QUADRANDS SOUNDS ARE ACTIVE. LEFT FOOT EDEMA NOTED. NO OTHER CONCERNS NOTED AT THIS TIME.
--- NOTE | 2021-02-16 09:14 | NUR ---
CHECKED PATIENT BLOOD SUGAR UPON RN REQUEST. SUGAR WAS 139, RN NOTIFIED.
--- NOTE | 2021-02-16 10:48 | NUR ---
PATEINT AWAKE IN BED, RN AT BEDSIDE FOR MEDS. VITALS AND I&OS CHARTED. NG IN PLACE. ROOM TIDIED, CALL LIGHT IN REACH
[2021-02-16] MEDS ORDERED: DOXAZOSIN MESYLA8 MG PO (11:25)
[2021-02-16] MEDS ORDERED: OMEPRAZOLE40 MG PO (11:27)
[2021-02-16] MEDS ORDERED: OXYCODONE-ACET1 EAC1 PO (11:29)
[2021-02-16] MEDS ORDERED: DICLOFENAC SOD100 G1 TOP (11:31)
[2021-02-16] MEDS ORDERED: LOSARTAN-HCTZ1 EAC2 PO (11:31)
[2021-02-16] MEDS ORDERED: METFORMIN HCL1000 MG PO (11:32)
[2021-02-16] MEDS ORDERED: METOPROLOL TART25 MG PO (11:32)
[2021-02-16] MEDS ORDERED: POTASSIUM CHLO20 ME1 PO (11:33)
[2021-02-16] MEDS ORDERED: BRIMONIDINE TART5 ML OU (11:34)
[2021-02-16] MEDS ORDERED: LEVOTHYROXINE175 MCG PO (11:35)
[2021-02-16] MEDS ORDERED: LIDOCAINE-PRILOC5 GM TOP (12:59)
--- NOTE | 2021-02-16 14:00 | NUR ---
1 UNIT OF INSULIN GIVEN FOR BG OS 142 PER ORDER. MD KIMBLE WAS ALSO NOTIFIED OF JOANS BLOOD IN NG TUBE. MD KIMBLE WAS ALSO NOTIFIED THAT PT MAY HAVE PULLED HER NG TUBE BACK SOME AND A CHEST-XRAY WAS ORDERED. WILL CONTINUE TO MONITOR.
--- NOTE | 2021-02-16 14:00 | EKG ---
[facility] [address] [facility] [place] [address] Signed Sinus rhythm with premature atrial complexes Left axis deviation Anteroseptal infarct (cited on or before 16-FEB-2021) Abnormal ECG When compared with ECG of 17-JUN-2016 17:04, premature atrial complexes are now present Questionable change in initial forces of Anterior leads Confirmed by ROHAN TELLEZ DO ([id number]) on 02/16/2021 2:00:34 PM Electronically Signed By: ROHAN TELLEZ DO 02/16/21 1400 PATIENT NAME: ELISABETH GARCIA Electrocardiogram DATE OF : 50 PHYSICIAN: ROHAN TELLEZ DO REPORT #: [id number] REPORT IS CONFIDENTIAL AND NOT TO BE RELEASED WITHOUT AUTHORIZATION
--- NOTE | 2021-02-16 14:01 | NUR ---
PATIENT AWAKE IN BED, AT BEDSIDE. VITAL AND I&OS CHARTED. NO OTHER NEEDS AT [facility] TIME
--- NOTE | 2021-02-16 14:07 | EKG ---
[facility] [address] [facility] [place], [place] [address] Signed Normal sinus rhythm Left axis deviation Septal infarct (cited on or before 16-FEB-2021) Abnormal ECG When compared with ECG of 16-FEB-2021 00:09, (Unconfirmed) premature atrial complexes are no longer present Questionable change in initial forces of Anterior leads Confirmed by ROHAN TELLEZ DO ([id number]) on 02/16/2021 2:07:40 PM Electronically Signed By: ROHAN TELLEZ DO 02/16/21 1407 PATIENT NAME: ELISABETH GARCIA Electrocardiogram DATE OF : 50 PHYSICIAN: ROHAN TELLEZ DO REPORT #: [id number] REPORT IS CONFIDENTIAL AND NOT TO BE RELEASED WITHOUT AUTHORIZATION
--- NOTE | 2021-02-16 14:39 | CONS ---
[facility] [address] [place], [place] [address] Signed DATE OF CONSULTATION: 02/16/2021 CHIEF COMPLAINT: Generalized abdominal pain. HISTORY OF PRESENT ILLNESS: Elisabeth is a 70-year-old obese diabetic female, who has had multiple abdominal surgeries including an open cholecystectomy, hysterectomy with an incidental appendectomy, who developed upper abdominal pain with crampy waves with nausea, bloating and vomiting. She came to emergency room for evaluation. White count was borderline at 11. CT scan showed dilated loops of small bowel 4.4 cm down into the pelvis. I was therefore asked to admit her as a general surgeon on-call. She has received IV fluids and an NG tube. She has had quite a bit of light yellow gastric fluid removed and is overall feeling better. PAST MEDICAL HISTORY: 1. Gastroesophageal reflux disease. 2. Hiatal hernia. 3. Peripheral neuropathy. 4. Anxiety. 5. Gout. 6. Chronic pain. 7. Hypertension. 8. Cerebral aneurysm. 9. Obesity. 10. Diabetes. 11. Chronic neck and back pain. PAST SURGICAL HISTORY: Includes: 1. Cerebral artery aneurysm clipping. 2. Right eye surgery. 3. Open cholecystectomy. 4. Hysterectomy. 5. Incidental appendectomy. 6. Left ankle surgery x2. 7. Left elbow surgery. 8. Breast reduction. 9. Parathyroidectomy. 10. Right toe amputation. 11. Right ankle surgery. SOCIAL HISTORY: Electronically Signed By: ANGELITO KIMBLE MD 02/16/21 4349 PATIENT NAME: ELISABETH GARCIA CONSULTATION DATE OF : 50 REPORT #: [id number] PHYSICIAN: ANGELITO KIMBLE MD PCP: LADY LEONG MD REPORT IS CONFIDENTIAL AND NOT TO BE RELEASED WITHOUT AUTHORIZATION [facility] [address] [place], [place] [address] Signed She quit smoking. She does not drink. She is to [place]ger at [phone]. They have 3 children. She is retired from various retail jobs. Dr. Lady Leong is her primary care provider. They prefer the [facility]. FAMILY HISTORY: Sister was a smoker and developed lung cancer. Brother had coronary artery disease. Mom of Alzheimer. Dad had coronary artery disease. REVIEW OF SYSTEMS: She had 10 systems reviewed and there is no metal in her body that she is familiar with. ALLERGIES: Zofran causes her to shake. MEDICATIONS: 1. Losartan. 2. Metformin. 3. Lovastatin. 4. Xalatan eyedrops. 5. Cranberry. 6. Percocet. 7. Amlodipine. 8. Potassium. 9. Ciera. 10. Probiotic. 11. Magnesium oxide. 12. Gabapentin. 13. Allopurinol. 14. Echinacea. 15. Glucosamine. 16. Doxazosin. 17. Duloxetine. 18. Levothyroxine. 19. Liothyronine. 20. Protonix. 21. Aspirin. 22. Ocuvite. 23. Multivitamin. 24. Vitamin D. 25. Biotin. PHYSICAL EXAMINATION: VITAL SIGNS: Blood pressure is 160/91, heart rate is 84, respiratory rate 17, temperature 97.6, she is 97% on 2 L nasal cannula. She is 5 feet 8 inches at 108 kg. Electronically Signed By: ANGELITO KIMBLE MD 02/16/21 5562 PATIENT NAME: ELISABETH GARCIA CONSULTATION DATE OF : 50 REPORT #: [id number] PHYSICIAN: ANGELITO KIMBLE MD PCP: LADY LEONG MD REPORT IS CONFIDENTIAL AND NOT TO BE RELEASED WITHOUT AUTHORIZATION [facility] [address] [place] [id number] Signed GENERAL: Elisabeth is a 70-year-old female, who is lying supine in her hospital bed. Her Holger is at the bedside. She does not appear systemically ill or toxic. LUNGS: Clear to auscultation bilaterally. HEART: Regular rate and rhythm without murmurs. ABDOMEN: Obese and moderately distended and generally nontender. No peritonitis. LABORATORY DATA: Her white blood count 11.0, hemoglobin 15, neutrophils 71, BUN 12, creatinine 0.8, glucose 172. Coronavirus is negative. Urinalysis negative. Liver function tests are negative. Albumin is 4.5. RADIOGRAPHIC STUDIES: CT scan of the abdomen and pelvis is reviewed and she does have a lot of fluid in the stomach and duodenum and dilated small bowel up to 4.4 cm down into the pelvis. ASSESSMENT AND PLAN: Elisabeth is a 70-year-old obese diabetic female, who presents with small bowel obstruction. She has been admitted for conservative treatment. We are going to ask our internal medicine service to see her as well for her medical issues. We will give this a few days and see how it goes. She may or may not need surgery. I have reviewed this with Elisabeth and her . They have expressed understanding and agreed with the above plan. Angelito Kimble MD [facility] /[id number] cc: MD Angelito Bowles MD Copies: LADY LEONG MD, ANDREW L MD ~ Electronically Signed By: ANGELITO KIMBLE MD 02/16/21 1439 PATIENT NAME: ELISABETH GARCIA CONSULTATION DATE OF : 50 REPORT #: [id number] PHYSICIAN: ANGELITO KIMBLE MD PCP: LADY LEONG MD REPORT IS CONFIDENTIAL AND NOT TO BE RELEASED WITHOUT AUTHORIZATION
--- NOTE | 2021-02-16 16:00 | NUR ---
PT IN ROOM STILL WAITING ON MEDICATION...
--- NOTE | 2021-02-16 16:00 | NUR ---
NG TUBE UNCHANGED. STILL SOME BLOOD PRESENT IN NG-TUBE, MD KIMBLE AWARE. NO NEW CONCERNS NOTED AT THIS TIME.
--- NOTE | 2021-02-16 17:48 | NUR ---
SBA FROM BATHROOM TO BED. VITALS AND I&OS CHARTED. CALL LIGHT IN REACH, NO OTHER NEEDS AT THIS TIME
--- NOTE | 2021-02-16 19:35 | NUR ---
SHIFT REPORT RECEIVED FROM RIOS SEAMAN. PT RESTING IN BED. IV FLUIDS INFUSING. NG TUBE LOW INTERMITTENT. NO NEEDS AT THIS TIME. CALL LIGHT IN REACH.
--- NOTE | 2021-02-16 20:31 | NUR ---
ASSESSMENT, VS AND I&O COMPLETED. GCS 15, A&O X4. LUNGS CLEAR, HEART REGULAR. ABD SOFT, TENDER, BOWEL TONES ACTIVE IN UPPER LOBES, HYPOCATIVE IN LOWER LOBES. PT REPORTS FLATUS. NUMBNESS AND TINGLING IN HANDS AND FEET, CHRONIC. MEDICATIONS PROVIDED SCHEDULED. 1+ BLE EDEMA. IV WNL, CDI, FLUSHED WELL. PULSES AND MOTOR INTACT IN EXTREMITIES. NG WNL, LOW INTERMITTENT WITH RED TINGED GREEN OUTPUT, PT TOLERATING WELL. NO OTHER NEEDS AT THIS TIME. CALL LIGHT IN REACH.
--- NOTE | 2021-02-16 20:35 | NUR ---
ORDER FOR IV FLUIDS DC'D BECAUSE IT WAS A BRIDGE ORDER. SPOKE WITH DR TELLEZ ABOUT ORDER FOR IV FLUIDS, VORBC AND ENTERED.
--- NOTE | 2021-02-16 20:48 | NUR ---
PT REPORTS NAUSEA AND 4/10 ABD PAIN. PRN NAUSEA AND PAIN MEDS PROVIDED. NO OTHER NEEDS. CALL LIGHT IN REACH.
--- NOTE | 2021-02-16 21:23 | NUR ---
PT CALLED WORRIED ABOUT NG TUBE BEING PULLED. RESECURED TUBE WITH TAPE AND SAFETY PIN TO GOWN. PT DENIES FURTHER NEEDS AT THIS TIME. CALL LIGHT IS CLOSE.
--- NOTE | 2021-02-16 21:51 | NUR ---
PT STATING SHE IS HAVING ANXIETY THAT SHE WILL PULL THE NG TUBE OUT. REASSURED PT THAT IT IS SECURED AND TURNED TEMP DOWN IN THE ROOM. TOLD PT THIS RN WILL CHECK WITH PRIMARY RN ABOUT ANXIETY MEDICATION. SHE STATES SHE TAKES SOMETHING AT HOME FOR ANXIETY. PT DENIES FURTHER NEEDS, CALL LIGHT IS CLOSE.
--- NOTE | 2021-02-16 22:05 | NUR ---
RETURNED TO TELL PT PRIMARY RN IS WTIH ANOTHER PT AT THIS TIME. ASSISTED PT TO TURN ON TV TO HELP WITH HER ANXIETY. SHE DENIES NEEDING ANYTHING ELSE TO TAKE HER MIND OFF OF IT AT THIS TIME. NOTIFIED PRIMARY RN.
--- NOTE | 2021-02-16 23:40 | NUR ---
PT RESTING IN BED, EYES CLOSED. NG ON LOW/INTERMITTENT. IV FLUIDS INFUSING PER ORDER. CALL LIGHT IN REACH.
--- NOTE | 2021-02-17 00:52 | NUR ---
pt abd pain 6/10, prn pain med provided. scheduled med provided. no other needs. call light in reach.
--- NOTE | 2021-02-17 02:05 | NUR ---
in to get vitals and pt up to void, 200mls, pt back to bed and ng suct in place, no further needs at this time
--- NOTE | 2021-02-17 02:21 | NUR ---
ASSESSMENT, VS AND I&O COMPLETED. SCHEDULED MED PROVIDED. GCS 15, A&O X4. NG ON LOW INTERMENTTENT WITH RED TINGED GREEN OUTPUT. LUNGS CLEAR, HEART TONES REGULAR. ABD SOFT, NONTENDER, BOWEL TONES ACTIVE.NUMBNESS AND TINGLING IN FEET AND HANDS, CHRONIC. PULSE AND MOTOR INTACT. IV WNL, FLUIDS INFUSING PER ORDER. PT UP TO BR WITH GAETANO BROADCAST PRODUCER.
--- NOTE | 2021-02-17 03:27 | NUR ---
PT RESTING IN BED, EYES CLOSED. RR EVEN, UNLABORED. CALL LIGHT IN REACH.
--- NOTE | 2021-02-17 05:06 | NUR ---
PT REPORTS 8/10 PAIN IN ABD, TEETH AND MOUTH, PRN PAIN MED PROVIDED. NG LOW INTERMITTENT OUTPUT GREEN WITH RED 75ML. VS AND I&O COMPLETED. PT SITTING UP ON SIDE OF BED. CALL LIGHT IN REACH.
--- NOTE | 2021-02-17 07:47 | NUR ---
RECEIVED REPORT FROM DAY FHIT RN. PATIENT IS RESTING IN BED. NG TO LWIS. PATIENT DENIES ANY NEEDS. CALL LIGHT IN REACH.
--- NOTE | 2021-02-17 08:40 | NUR ---
PATIENT ASSESMENT COMPLETED. INTAKE AND OUTPUT RECORDED. VITALS TAKEN AND RECORDED. MORNING MEDICATIONS GIVEN PER ORDER. PATIENT REPORTS 5/10 PAIN IN HER ABD AND FEET. PRN PAIN MEDICATION GIVEN AND PRN CREAM APPLIED TO PATIENTS BILAT FEET. NG DRESSING ON NOSE CHANGED. PATIENT HAS NOTED 1T EDMA IN HER BILAT FEET. IS PRESENT IN ROOM. ALL QUESTIONS ANSWERED. PATIENT REMAINS ON RA. PATIENT DENIES ANY NEEDS. CALL LIGHT IN REACH.
--- NOTE | 2021-02-17 10:43 | NUR ---
MEDICATIONS INFUSING PER ORDER. VITALS TAKEN AND RECORDED. BP MEDICATION GIVEN PER ORDER. PATIENT DENIES ANY NEEDS. CALL LIGHT IN REACH.
--- NOTE | 2021-02-17 11:17 | NUR ---
PATIENT REPOSITIONED IN BED. BP REPEATED AND IS TRENDING DOWN. PATIENTS IV INFUSING PER ORDER. PATIENT DENIES ANY NEEDS. CALL LIGHT IN REACH.
--- NOTE | 2021-02-17 11:52 | NUR ---
PATIENT SBA UP TO BR AND BACK TO SIDE OF BED. LINENS CHANGED AND BEDBATH COMPLETE. RN APPLYING CREAM TO PATIENTS FEET. NG PINNED TO GOWN. CALL LIGHT AND PERSONAL ITEMS IN CLOSE REACH, NO OTHER NEEDS AT THIS TIME
--- NOTE | 2021-02-17 12:47 | NUR ---
PATIENT CALLED TO REPORT 5/10 PAIN IN HER FEET. CREAM APPLIED AND PRN PAIN MEDICATION GIVEN PER ORDER. NO FURTHER NEEDS NOTED. CALL LIGHT IN REACH.
--- NOTE | 2021-02-17 13:26 | NUR ---
PATIENT IS RESTINGIN BED. PATIENT BECAOME NAUSEOUS NG TO LWIS. PATIENT REPOSITIONED IN BED. PATIENT RATES PAIN AT A 5/10 IN HER FEET. PATIENT REPORTS A HEADACHE. PATIENT GIVEN A COOL RAG FOR HER FOREHEAD. PATIENTS SCHEDULED MEDICATIONS GIVEN PER ORDER. NO FURTHER NEEDS NOTED. CALL LIGHT IN REACH.
--- NOTE | 2021-02-17 13:34 | NUR ---
PATIENTS BP IS INCREASED. NOTIFIED MD. NEW ORDERS PLACED.
--- NOTE | 2021-02-17 14:19 | NUR ---
PATIENTS BP TAKEN. PATIENTS MEDICATIONS GIVEN PER ORDER. PATIENTS NG IS NOW CLAMPED AGAIN. PATIENT DENIES ANY AND PAIN OR NASUEA. PATIENT UP TO THE RESTRROM. NG TO GRAVITY AGAIN.
--- NOTE | 2021-02-17 16:06 | NUR ---
PATIENTS BP REPEATED PER MD ORDER. BP CONTINUES TO BE ELEVATED. PRN BP MED GIVEN PER ORDER. PATIENT DENIES ANY NEEDS. CALL LIGHT IN REACH.
--- NOTE | 2021-02-17 17:08 | NUR ---
VITALS TAKEN AND RECORDED. BP IS TRENDING DOWN. PATIENT IS SITTING ON THE EDGE OF THE BED. IS IN THE ROOM. NO NEEDS NOTED. CALL LIGHT IN REACH.
--- NOTE | 2021-02-17 18:05 | NUR ---
SBA TO BR WITH CANE. PATIENT HAD LG BM. RN NOTIFIED. BACK TO SIDE OF BED. IN ROOM
--- NOTE | 2021-02-17 18:56 | NUR ---
PATIENTS VITALS TAKEN AND RECORDED. INTAKE AND OUPUT RECORDED. PATIENT DENIES ANY NEEDS. NG REMAINS TO GRAVITY. PATIENT DENIES ANY PAIN OR NAUSEA. PATIENTS BP CONTINUES TO TREND DOWN. NO FURTHER NEEDS NOTED.
--- NOTE | 2021-02-17 19:34 | NUR ---
PATIENT RESTING IN BED AND HAS NO CARE NEEDS AT THIS TIME. NG DRAINING TO GRAVITY. CALL LIGHT IS IN REACH.
--- NOTE | 2021-02-17 20:00 | NUR ---
PATIENT CALLED TO USE THE BATHROOM. SBA.
--- NOTE | 2021-02-17 20:20 | NUR ---
PATIENT IS SITTING (DANGLING) BY THE BED STATED JUST WANT HER LEGS CALM DOWN.
--- NOTE | 2021-02-17 21:00 | NUR ---
PATIENT HAS BEEN GETTING UP 1PA WITH CANE TO THE BATHROOM AND HAS BEEN HAVING SOME BOWEL MOVEMENTS EVEN THOUGH BOWEL TONES ARE MOSTLY HYPOACTIVE.EVENING MEDS GIVEN PER ORDERS AND PATIENT'S B/P IN RANGE WITH MEDS. CALL LIGHT IN REACH AND NO CARE NEEDS AT THIS TIME.
--- NOTE | 2021-02-17 21:25 | NUR ---
PATIENT NAUSEATED AND GIVEN IV PAIN MEDICATION DILUTED WITH NS OF 20MLS PER PROTOCAL. NAUSEA EASING AND PATIENT IS GOING TO TRY AND GO TO SLEEP. PATIENT'S HERE NOW, BUT IS GOING HOME. PATIENT HAS NO OTHER CARE NEEDS AT THIS TIME. CALL LIGHT IS IN REACH.
--- NOTE | 2021-02-17 23:15 | NUR ---
PATIENT CALLED. SBA TO THE BATHROOM USING CANE. PATIENT VOIDED 375ML AND BOWEL MOVEMENT MEDIUM SOFT. PATIENT IS BACK IN BED. PATIENT REQUESTED SOMETHING FOR NAUSEA. PRIMARY RN NOTIFIED.
--- NOTE | 2021-02-17 23:30 | NUR ---
PATIENT NAUSEATED AGAIN AND GIVEN 10MG REGLAN SIVP AND PATIENT'S NAUSEA IS GETTING BETTER. PATIENT UP TO BATHROOM 1PSBA AND CANE AND BACK TO BED WITH THIS RN'S HELP. CALL LIGHT IN REACH. PATIENT HAS NO OTHER NEEDS AT THIS TIME.
--- NOTE | 2021-02-18 00:38 | NUR ---
PATIENT WAS UP TO THE BATHROOM. SBA USING CANE. PATIENT IS BACK IN BED.
--- NOTE | 2021-02-18 00:44 | NUR ---
PATIENT CALLED. PATIENT C/O PAIN AND NAUSEATED. PRIMARY RN NOTIFIED. PATIENT WANTED TO SIT UP DANGLING IN BED THIS TIME. CALL LIGHT WITHIN REACH.
--- NOTE | 2021-02-18 01:31 | NUR ---
PATIENT GIVEN 1MG IV DILAUDID EXTREMELY SIVP FOR LEG AND BACK PAIN OF 8/10. PAIN NOW 2/10 AND PATIENT THINKS SHE SHOULD BE ABLE TO SLEEP NOW. PATIENT GIVEN ALL OTHER 2AM MEDS AND TREATMENTS. LIDOCAINE CREAM APPLIED TO PATIENT'S FEET. PATIENT HAS NO OTHER CARE NEEDS AT THIS TIME AND ASSESSMENT REMAINS UNCHANGED. CALL LIGHT IN REACH.
--- NOTE | 2021-02-18 03:36 | NUR ---
SURY NELSONA LEAVING THE ROOM/ PATIENT'S B/P REMAINS ELEVATED AND 20MG IV LABETALOL GIVEN SIVP PER PROTOCAL AND PATIENT ALSO HAVING SOME NAUSEA AGAIN AND IV NAUSEA MEDICATION GIVEN PER PROTOCAL. CALL LIGHT IN REACH.
--- NOTE | 2021-02-18 03:36 | NUR ---
ASSISTED PATIENT FROM BATHROOM TO BED. ICE CHIPS RE FRESH. PRIMARY RN WAS WITH PATIENT.
--- NOTE | 2021-02-18 04:15 | NUR ---
PATIENT'S B/P BACK IN ACCEPTABLE PARAMETERS AND NAUSEA HAS IMPROVED. CALL LIGHT IS IN REACH.
--- NOTE | 2021-02-18 05:44 | NUR ---
CALLED DUE TO SUSTAINED SBP OVER 185, PATIENT IS STILL EXTREMELY ANXIOUS. ORDERED 1MG IV ATIVAN X1 NOW AND SAID THAT A SECOND DOSE OF IV LABETALOL COULD BE REPEATED EARLIY IF THE ATIVAN DID NOT HELP.
--- NOTE | 2021-02-18 05:55 | NUR ---
1MG IV ATIVAN GIVEN. WILL REEVALUTE TO SEE IF ANOTHER DOSE OF LABETALOL WILL BE NEEDED TO BRING DOWN B/P. CALL LIGHT IS IN REACH. PATIENT'S LAST B/P=198/100 MANUALLY AND HR=80.
--- NOTE | 2021-02-18 06:32 | NUR ---
EARLY DOSE OF LABETALOL IV REQUIRED AND GIVEN. PATIENT'S ANXIETY IS BETTER. PATIENT UP TO THE RESTROOM 1PA AND CANE BY THIS RN.
--- NOTE | 2021-02-18 07:15 | NUR ---
PATIENT'S B/P BACK WITHIN ACCEPTABLE PARAMETERS. REPORT GIVEN TO URSZULA BURGER.
--- NOTE | 2021-02-18 07:30 | NUR ---
THIS RN RECIEVED REPORT FROM XIAO SEAMAN. PT SITTIN UP IN BED WITH AT BEDSIDE. PT NOTABLY AXIOUS THIS AM. BP TAKEN BY XIAO SEAMAN. THIS RN DISCUSSED WITH PT THAT THIS RN WILL BE BACK SOON
[2021-02-18] MEDS ORDERED: GABAPENTIN600 MG PO (08:14)
--- NOTE | 2021-02-18 08:15 | NUR ---
AT THIS TIME THIS RN REMOVED PTS NG TUBE PER MD'S ORDERS. PT TOLERATED WELL AND STATES THAT IT WAS UNCOMFORTABLE AND PAPPAS SLIGHTLY.
[2021-02-18] MEDS ORDERED: DULOXETINE HCL60 MG PO (08:17)
[2021-02-18] MEDS ORDERED: FEROSUL325 MG PO (08:23)
--- NOTE | 2021-02-18 08:38 | NUR ---
THIS RN ASSISTED PT TO THE RESTROOM. PT REPORTS NORMAL BACK PAIN BUT HER ABD PAIN IS TOERABLE AND PT REPORTS NO NAUSEA THIS AM. PT REPORTS THAT SHE DOESN'T HAVE ANY APPETITE, THIS RN WILL ENCOURAGE PT TO EAT THIS AM TO ASSIST WITH ORDERING FOOD FOR PT.
[2021-02-18] MEDS ORDERED: LEVOTHYROXINE200 MCG PO (09:00)
--- NOTE | 2021-02-18 10:19 | NUR ---
PATIENT UP TO CHAIR, RIKI AVENDANO. AM CARE DONE. VITLAS AND I&O'S CHARTED. CALL LIGHT IN REACH. NO FURTHER NEEDS AT THIS TIME.
--- NOTE | 2021-02-18 10:46 | NUR ---
I was able to meet with Angelika this morning. She is very happy with her care here in the hospital. She feels very comfortable with the care she has received, stating "they have been wonderful" and she is very comfortable with a discharge plan to go home with her . She states that her will be able to transfer her home, and between her and her children who live locally she will be able to have all of her home care needs met.
--- NOTE | 2021-02-18 11:01 | NUR ---
THIS RN IN PTS ROOM TO GIVE PT HER FOOT CREAM PER PT REQUEST. PT STATES THAT SHE NEEDS NOTHING ELSE AT THIS TIME. PT SITTING UP TO CHAIR AND STATES THAT SHE IS FEELING BETTER. PT APPEARS TO BE COMFORTABLE AND APPEARS TO HAVE REDUECED HER ANXIETY AFTER THE NG TUBE WAS REMOVED.
--- NOTE | 2021-02-18 12:56 | NUR ---
THIS RN IN PTS ROOM TO CHECK ON PT. PT STATES THAT SHE HAS NO NAUSEA OR ANY ABDOMINAL DISCOMFORT. PT HAS HAD A BM SINCE REMOVAL OF NG TUBE. 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 THIS RN TO HAVE NUTRITION SERVICES CONSULT ON PTS CASE TO PROVIDE EDUCATION TO PT
--- NOTE | 2021-02-18 14:15 | NUR ---
PATIENT UP TO BATHROOM AND BACK TO SITTING ON EDGE OF BED, SBA CANE. IN ROOM. VITALS AND I&O'S CHARTED. CALL LIGHT IN REACH. DIETITION IN ROOM TO TALK WITH PATIENT. NO FURTHER NEEDS AT THIS TIME.
--- NOTE | 2021-02-18 14:55 | NUR ---
THIS RN IN PTS ROOM TO GIVE PT HER ACCU CHECK. THIS RN EDUCATED PT ABOUT GOING HOME. PTS APPEARS TO HAVE ANXIETY ABOUT PT COMING HOME.
--- NOTE | 2021-02-18 15:00 | NUR ---
THIS RN CALLED TO UPDATE HIM ON HOW PT WAS DOING. MD STATED PT CAN DISCHARGE. THIS RN TO PUT IN ORDER. NO CHANGES TO MEDS, PT TO FOLLOW UP WITH MD NEEDED. REGULAR DIET- 60GM CARB OKAY. PT STATES THAT SHE IS EXCITED TO GO HOMW
--- NOTE | 2021-02-18 15:47 | NUR ---
FRANKLIN SEAMAN ASKED IF I COULD COME AND TALK TO PATIENT ON WAYS TO IMPROVE HER NUTRITION INTAKE AT HOME. I STOPPED BY PATIENT'S ROOM BETWEEN 2:15-2:30 PM TODAY. HER WAS VISITING. PATIENT SAID SHE EATS 1 PANCAKE FOR BREAKFAST, 1/2 PACKAGE RAMEN NOODLES WITH A HARD-BOILED EGG FOR LUNCH AND THE SAME FOR DINNER. SOMETIMES SHE PUTS CAULIFLOWER IN HER RAMEN NOODLES. SHE DOES NOT DRINK ANY MILK OR EAT ANY YOGURT AND ONLY A SMALL AMOUNT OF CHEESE. SHE LIKES UNSALTED CASHEWS AND WILL EAT THOSE ABOUT EVERY DAY. HER WAS IN AGREEMENT THAT SHE NEEDS TO EAT HEALTHIER ITEMS. I GAVE THEM A HANDOUT ON "[employer] FOR OLDER ADULTS" THAT EXPLAINED THE FOOD GROUPS TO HAVE AT EACH MEAL. HE SAID HE WILL HELP HER EAT MORE FRUIT AT BREAKFAST AND VEGETABLES AT LUNCH AND DINNER. PATIENT STATES SHE PROBABLY WON'T CHANGE MUCH. SHE IS NOW ON A SOFT DIET AFTER HAVING THE NGT REMOVED FOR A SMALL BOWEL OBSTRUCTION.
--- NOTE | 2021-02-19 08:01 | DS ---
[facility] [address], [place] [address] Signed ADMISSION DATE: 02/16/2021 DISCHARGE DATE: 02/18/2021 FINAL DIAGNOSIS: Small bowel obstruction. PROCEDURE: CT scan of abdomen and pelvis. HISTORY OF PRESENT ILLNESS: Elisabeth is a 70-year-old obese diabetic female, who has had multiple previous abdominal surgeries including an open cholecystectomy, hysterectomy and incidental appendectomy. She developed diffuse crampy abdominal pain that came on as waves with nausea, bloating and vomiting. She went to the emergency room for evaluation. Her white count had been borderline. The CT scan showed dilated loops of small bowel up to 4.4 cm down in her pelvis. I have been asked to admit her as a general surgeon on-call. HOSPITAL COURSE: Elisabeth was admitted as above and placed on the NG tube with return of bilious fluid. She was given IV fluids and pain control. We had our Internal Medicine Service follow her for her medical issues including diabetes. She started to pass gas and several large bowel movements and more gas and was feeling markedly improved. Very minimal thin bilious fluid out from her NG tube. The abdominal exam basically improved to baseline. She is obese, but quite soft and nontender. The NG tube had been removed. She tolerated clears and this morning she ate breakfast and lunch and has done quite well. Her nurse had called me in the mid afternoon during my clinic. We decided we would go ahead and send her home without any additions or changes to her current regimen. DISCHARGE PLANS AND MEDICATIONS: Elisabeth will be discharged home without any change in her medications. She will resume her chronic medications at home. She can resume her usual diet at home. Unfortunately, she eats pancakes and most days. We did have the specialty finishing utility person see her. She can perform her activities as usual. She can follow up my office as needed. She will maintain her usual follow up with her primary care provider. I had reviewed this with her and the patient several times. They had expressed understanding and wished to proceed. Angelito Kimble MD Electronically Signed By: ANGELITO KIMBLE MD 02/19/21 0801 PATIENT NAME: ELISABETH GARCIA DISCHARGE SUMMARY DATE OF : 50 REPORT #: [id number] PHYSICIAN: ANGELITO KIMBLE MD PCP: LADY LEONG MD REPORT IS CONFIDENTIAL AND NOT TO BE RELEASED WITHOUT AUTHORIZATION [facility] [address] [place] [address] [place], [place] [address] Signed ALB/MODL /[id number] cc: Lady Leong MD Copies: LADY LEONG MD ~ Electronically Signed By: ANGELITO KIBMLE MD 02/19/21 0801 PATIENT NAME: ELISABETH GARCIA DISCHARGE SUMMARY DATE OF : 50 REPORT #: [id number] PHYSICIAN: ANGELITO KIMBLE MD PCP: LADY LEONG MD REPORT IS CONFIDENTIAL AND NOT TO BE RELEASED WITHOUT AUTHORIZATION
== END 2021-02-18 16:45 | disposition home or self-care (01) | DRG 390 ==
LOC: ED 22:55 → MS 22:57 → ED 02-16 04:52 → MS 02-16 09:02
PROVIDERS: ADMIT Colon & Rectal Surgery; ATTEND Colon & Rectal Surgery
DX: K56.609 Unspecified intestinal obstruction, unspecified as to partial versus complete obstruction (principal); Z20.822 Contact with and (suspected) exposure to COVID-19; E11.42 Type 2 diabetes mellitus with diabetic polyneuropathy; I10 Essential (primary) hypertension; E78.5 Hyperlipidemia, unspecified; K21.9 Gastro-esophageal reflux disease without esophagitis; E03.9 Hypothyroidism, unspecified; F41.1 Generalized anxiety disorder; M10.9 Gout, unspecified; E66.9 Obesity, unspecified; E87.6 Hypokalemia; E83.42 Hypomagnesemia; G89.29 Other chronic pain; M54.9 Dorsalgia, unspecified; M54.2 Cervicalgia; Z88.8 Allergy status to other drugs, medicaments and biological substances; Z79.899 Other long term (current) drug therapy; Z79.84 Long term (current) use of oral hypoglycemic drugs; Z79.82 Long term (current) use of aspirin; Z87.891 Personal history of nicotine dependence; Z68.36 Body mass index [BMI] 36.0-36.9, adult
CPT/HCPCS: 43752; 71045; 74176; 80048; 80053; 81001; 83690; 83735; 84100; 85025; 93005; 93010; 94760; 99285-25; C9113; J0696; J1170; J1650; J1815; J2060; J2550; J2765; J3475; J3480; J7060; J7121; U0003

== ENCOUNTER 2021-09-05 02:06 | Inpatient (IN) | payer MEDICARE, OTHER ==
[~2021-09-05] VITALS: Ht 172.7 cm; Wt 69.9 kg
[~2021-09-05 02:06] MED LIST changes: -ASPIR-LOW81 MG PO; +BRIMONIDINE TART5 ML OU; +DICLOFENAC SOD100 G1 TOP; +DOXAZOSIN MESYLA8 MG PO; +DULOXETINE HCL60 MG PO; +FEROSUL325 MG PO; +GABAPENTIN600 MG PO; +LEVOTHYROXINE175 MCG PO; +LEVOTHYROXINE200 MCG PO; +LIDOCAINE-PRILOC5 GM TOP; +LO-DOSE ASPIRIN81 M1 PO; +METFORMIN HCL1000 MG PO; +METOPROLOL TART25 MG PO; +OMEPRAZOLE40 MG PO
--- OUTSIDE RECORDS SUMMARY | 2021-09-05 02:08 | XMS ---
PreManage Notification: ELISABETH GARCIA Security Disability Insurance Hearing Officer Events No recent Security Events currently on file CRITERIA MET - [facility] There are no care providers on record at this time. Vladimir has no Care Guidelines for this patient. Ramesh VISIT COUNT (12 MO.) 2 [facility] TOTAL 2 NOTE: Visits indicate total known visits. ED/UCC VISIT TRACKING (12 MO.) 09/05/2021 02:06 [facility] [place] TYPE: Emergency COMPLAINT: - ABD PAIN, NAUSEA 02/15/2021 22:56 [facility] [place] TYPE: Emergency COMPLAINT: - SMALL BOWEL OBSTRUCTION DIAGNOSES: - Body mass index [BMI] 36.0-36.9, adult - Generalized anxiety disorder - Obesity, unspecified - Hypokalemia - Personal history of nicotine dependence - Gastro-esophageal reflux disease without esophagitis - Hypothyroidism, unspecified - Cervicalgia - termite technician (current) use of aspirin - assisted (current) use of oral hypoglycemic drugs - Other fdc (current) drug therapy - Unspecified intestinal obstruction, unspecified as to partial versus complete obstruction - Allergy status to other drugs, medicaments and biological substances - Gout, unspecified - Hyperlipidemia, unspecified - Hypomagnesemia - Other chronic pain - Generalized abdominal pain - Dorsalgia, unspecified - Essential (primary) hypertension - Type 2 diabetes mellitus with diabetic polyneuropathy INPATIENT VISIT TRACKING (12 MO.) 02/16/2021 09:02 [facility] [place] TYPE: Medical Surgical COMPLAINT: - SMALL BOWEL OBSTRUCTION DIAGNOSES: - Allergy status to other drugs, medicaments and biological substances - Other chronic pain - Gastro-esophageal reflux disease without esophagitis - Unspecified intestinal obstruction, unspecified as to partial versus complete obstruction - Hypokalemia - Dorsalgia, unspecified - Body mass index [BMI] 36.0-36.9, adult - Essential (primary) hypertension - Other termite technician (current) drug therapy - Personal history of nicotine dependence - Type 2 diabetes mellitus with diabetic polyneuropathy - Generalized abdominal pain - Cervicalgia - Generalized anxiety disorder - Hypothyroidism, unspecified - Gout, unspecified - Obesity, unspecified - Hypomagnesemia - termite technician (current) use of oral hypoglycemic drugs - termite technician (current) use of aspirin - Hyperlipidemia, unspecified [email or web address]
--- NOTE | 2021-09-05 07:30 | NUR ---
this rn received report from bradford garay. pt in bed and this rn able to restart fluids.
[2021-09-05] MEDS ORDERED: OXYCODONE-ACET1 EAC1 PO (07:49)
--- NOTE | 2021-09-05 08:30 | NUR ---
this rn in pts room due to pt reporting that she was beltching bile. this rn readjusted the scution to ensure that it would suction properly. pt reports that this feels better at this time.
--- NOTE | 2021-09-05 08:43 | NUR ---
Pt discussed in [address] Mohamud for MDT.
--- NOTE | 2021-09-05 09:56 | NUR ---
MED REC COMPLETED BY PHARMACY
--- NOTE | 2021-09-05 10:10 | NUR ---
this rn in pts room to give scheduled meds. pt states that she is doing well and denies pain and nausea at this time. [facility] nursing professor ashli to give pts enoxaparin and protonix, given within standard of care under supervision on this rn. call light within reach
--- NOTE | 2021-09-05 11:55 | NUR ---
Spoke with pt. She is resting in bed with an NGT in place. States its miserable, but not her first time. She lives in town with her spouse. States she has only left her home 2 x since the pandemic. States spouse does all the cooking, cleaning, shopping. She uses a cane. Denies needs at this time. Plans on dc to home with spouse when cleared medically.
--- NOTE | 2021-09-05 12:36 | NUR ---
this rn in pts room to check on pt. pt laying in bed. suction still in place. pt states that she is thristy- mouth swabs at bedside. pt denies pain and nausea at this time.
--- NOTE | 2021-09-05 13:45 | NUR ---
PT CALLED FOR ASSISTANCE TO BEDSIDE COMMODE. RN INTO ASSIST, STANDBY ASSIST TO BEDSIDE COMMODE, SHE VOIDED 600ML OF LIGHT REJI CLEAR URINE, NO MALODOR NOTED. PT TOLERATED ACTIVITY WELL STEADY MOVEMENTS.
--- NOTE | 2021-09-05 14:30 | NUR ---
THIS RN IN PTS ROOM TO GIVE PT SCHEDULED BLOOD SUGAR CHECK. INSULIN GIVEN. PT STATES THAT SHE IS A BIT NAUSEOUS THIS RN PROVIDED PT WITH 12.5MG PHENERGAN. PT STATES THAT NO PAIN AT THIS TIME. CALL LIGHT WITHIN REACH AT THIS ITME
--- NOTE | 2021-09-05 16:00 | NUR ---
PT CALLED AND STATED THAT HER PAIN IS 8/10. THIS RN PROVIDED PT WTIH 0.5MG DILUADID FOR PAIN. THIS RN AND [facility] MIRZA THOMPSON REPOSITIONED PT IN BED. PT STATES THIS IS MUCH BETER. CALL LIGHT WITHIN REACH
--- NOTE | 2021-09-05 17:20 | NUR ---
THIS RN IN PTS ROOM TO RECHECK PTS PAIN. PT STATES THAT HER PAIN IS "MUCH BETTER" AND NEEDS NOTHING FURTHER. CALL LIGHT WITHIN REACH
--- NOTE | 2021-09-05 19:01 | NUR ---
ASKED PATIENT IF SHE HAD TO VOID AND SHE SAID NO I ASK HER TWO DIFFERENT TIMES. WILL ASK ONE MORE TIME BEFORE I LEAVE.
--- NOTE | 2021-09-05 19:45 | NUR ---
PT AWAKE, ON 1LNC O2. LUNGS CLEAR BILAT, RESP EVEN, UNLABORED. R EYE WITH PATCH OVER, R NARE WITH NGT TO LIWS, DRAINING YELLOW/CREAMY COLORED DRAINAGE. PATENT. R FOOT ABOVE TOES WITH BANDAID IN PLACE. PT STATES SHE HAS "NEUROPATHY AND IT HELPS". IVF INFUSING LAC. CBG 128, NO COVERAGE, NPO, RECEPTIVE. ALERT AND ORIENTED, CALL LIGHT AT HANDS REACH
--- NOTE | 2021-09-05 20:05 | NUR ---
C/O INCREAED ANXIETY AND ABD PAIN 12/31, MEDICATED WITH DILAUDID 1 MG
--- NOTE | 2021-09-05 20:28 | NUR ---
PT CALLED, ASSEST TO BSC, SBA. DEPENDENT IN CLEANING AFTERWARDS. CAME INTO ROOM ASKED PT WHAT WAS "WRONG". PT SAID I JUST DIDNT FEEL GOOD, BUT SHE WAS SURPRISED TO SEE HIM, HE REMINDED HER SHE HAD CALLED HIM. UNCONCERNED THAT PT FORGOT SHE HAD CALLED. BACK TO BED, KYLE SHEPARD, JIM MARTINEZ, CALL LIGHT AND SIDE RAILS UP PER PT REQUEST. IV PATENT INFUSING PER ORDER.
--- NOTE | 2021-09-05 21:38 | NUR ---
came to see pt after she called him via phone. Pt resting, eyes closed, O2 in place, no distress. calmer, comfortable
--- NOTE | 2021-09-05 23:15 | NUR ---
PT AWAKE, SITTING EDGE OF BED, IRRITABLE MOOD, NOT EASILY REDIRECTED. SAFETY REASSURED. PROCEDURES - IV SITE/FLUID-NGT, NPO EXPLAINED SEVERAL TIMES TO PT, SEMIRECEPTIVE. CONT TO INSTRUCT WITH EACH INTERACTION. DENIES CP OR SOB OR ANY DISCOMOFRT, DID OWN MOUTH CARE. LEGS DANGLING AT EDGE OF BED. TRACE OF EDEMA NOTED, NO CHANGES, DECLINES TO USE SAFETY SOCKS.
--- NOTE | 2021-09-06 02:58 | NUR ---
Pt very anxious, reassured, was medicated by charge nurse. Up to BSC, voiding. . On 1LNC, lungs fine crackles at bases, no cough, no distress. R nare NGTR to ILWS, draining very thick, brownish/red colored drainage. sluggish. dry heaving at times, encouraged to elevated HOB at least to 30-45o semi compliant, cont to reinforce teaching to prevent aspiration. IVF infusing w/o problems. bandaid over R eye and R top of foot. pt applies it. stated she had an "aneurism on R eye and has neuropathy R foot and the dressing helps". encouraged to elevate. semi compliant due to anxiety, continues to reinforce and reassure safety, pain control. aware of fall and aspiration precautions. call light at bedsise, does own mouth care, NPO
--- NOTE | 2021-09-06 03:15 | NUR ---
PT ASSISTED OFF THE BSC, NO FURTHER NEEDS AT THIS TIME
--- NOTE | 2021-09-06 05:40 | CONS ---
[facility] [address], [place] [address] Signed DATE OF CONSULTATION: 09/05/2021 CHIEF COMPLAINT: Periumbilical abdominal pain. HISTORY OF PRESENT ILLNESS: Elisabeth is a 71-year-old obese diabetic female, who has had multiple abdominal surgeries to include an open cholecystectomy, open hysterectomy with an incidental appendectomy and possibly lysis of adhesions in the past. I met her last January in 2020, when she had similar symptoms. We treated her conservatively for the bowel obstructions back then and within two or three days, she was much better and went home. She actually asked me today if she could go home tonight and I told a bit early. They are worried about the COVID pandemic. She has had three days now of abdominal distention and pain with nausea. She said she has not vomited yet. She tried to take some Zofran, although it is listed as an allergy and that did not help. She came to the emergency room for evaluation. White count is 9.9, was otherwise unremarkable. Her platelets always run just a little low. She did see the medical oncologist for that and that evaluation was negative. At that time, she had been septic from her pyelonephritis and probably has some level of hepatomegaly contributing. She also had upper and lower endoscopy [place] [address] Dejesus. There was some concern about a single varix in her mid esophagus. Interestingly, the CT scans do not mention any sources for liver or portal hypertension or splenomegaly. Colonoscopy at that time showed some internal hemorrhoids. She had been septic with pyelonephritis during that admission. Currently, she has had an NG tube placed and she is on IV fluids and overall feels about the same. She has turbid bilious fluid in her NG tube canister, maybe 200 or 300 mL. To her knowledge, she has had no bowel movement or flatus about the last day. 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 PAST SURGICAL HISTORY: Includes open cholecystectomy, the open hysterectomy with incidental appendectomy, the treatment of her cerebral aneurysm, surgery on her eye, ankle surgery x2, left elbow surgery, breast reduction surgery, parathyroidectomy, right toe amputation, right ankle surgery, upper and lower endoscopy [place] [address] Dejesus with internal hemorrhoids and a small mid esophageal varix along with short flat bowel mechanism and short-segment Farooq's esophagus. SOCIAL HISTORY: She quit smoking years ago. She does not drink. She is to Bill at [phone]. Dr. Lady Leong is her primary care provider. She has three children. She is retired Electronically Signed By: ANGELITO KIMBLE MD 09/06/21 0540 PATIENT NAME: ELISABETH GARCIA CONSULTATION DATE OF : 50 REPORT #: [id number] PHYSICIAN: ANGELITO KIMBLE MD PCP: LADY LEONG MD REPORT IS CONFIDENTIAL AND NOT TO BE RELEASED WITHOUT AUTHORIZATION [address] [address] Signed from retail. They live here in town. FAMILY HISTORY: Sister had lung cancer. Dad and brother had coronary artery disease. Mom had Alzheimer's. REVIEW OF SYSTEMS: She had 10 systems reviewed and really nothing new since I have seen her last summer. ALLERGIES: Zofran cause her to shake. MEDICATIONS: Magnesium chloride, allopurinol, aspirin, Ocuvite, multivitamin, vitamin D, Norvasc, lovastatin, Xalatan eyedrops, Doxazosin, omeprazole, losartan, hydrochlorothiazide, diclofenac gel, metformin, metoprolol, potassium, gabapentin, duloxetine, iron, brimonidine eye drops, levothyroxine, and lidocaine patches. PHYSICAL EXAMINATION: VITAL SIGNS: Her blood pressure is 146/77, heart rate is 87, respiratory rate is 16, temperature is 98.2, she is 95% on room air. She is 5 feet 8 inches tall, 108 kg. GENERAL: Elisabeth is a 71-year-old female, lying supine in her hospital bed. Her Bill is at the bedside. She does not appear systemically ill or toxic. The NG tube in place. She has around 200 to 300 mL of turbid bilious fluid in the canister. LUNGS: Clear to auscultation bilaterally. HEART: Regular rate and rhythm without murmurs. ABDOMEN: Obese with some moderate distention, mildly tender in the mid epigastric area, but no peritoneal signs or symptoms. LABORATORY DATA: Her white blood cell count is 9.9, hemoglobin 14, neutrophils 78, platelets 122. Sodium 135, BUN 13, creatinine 0.97, glucose 157. COVID negative. Urinalysis negative. Liver function tests negative. Albumin is 3.4. RADIOGRAPHIC STUDIES: A CT scan of the abdomen and pelvis is reviewed both the images and the report. Again, she had some dilated loops of probably proximal ileum about 4 cm in diameter. She has some distal ileum that is decompressed. It seems to be mostly in the mid abdomen, maybe at the top of the pelvis. ASSESSMENT AND PLAN: Elisabeth is a 71-year-old female, who presents as above with what appears to be a recurrent small-bowel obstruction. She responded very nicely to conservative treatment last summer. She and her are very concerned about her chronic medical issues Electronically Signed By: ANGELITO KIMBLE MD 09/06/21 0540 PATIENT NAME: ELISABETH GARCIA CONSULTATION DATE OF : 50 REPORT #: [id number] PHYSICIAN: ANGELITO KIMBLE MD PCP: LADY LEONG MD REPORT IS CONFIDENTIAL AND NOT TO BE RELEASED WITHOUT AUTHORIZATION [facility] [address], [place] [address] Signed relative to the COVID pandemic. She has basically been staying at home. She has a hard time walking with her neuropathy, so he always goes with her. He is quite concerned about being in the hospital knowing we are in the midst of our COVID pandemic. Also, they reiterated to me in great detail they really want to avoid surgery if at all possible knowing her age and medical comorbidities and so forth. I reminded him she did well with conservative treatment last summer. We are going to go along that route once again. We will have our medical service see them in consultation and will follow along her conservative course. They have expressed understanding and agreed with the above plan. Angelito Kimble MD ALB/MODL /[id number] cc: MD Angelito Bowles MD Copies: LADY LEONG MD, ANDREW L MD ~ Electronically Signed By: ANGELITO KIMBLE MD 09/06/21 0540 PATIENT NAME: ELISABETH GARCIA CONSULTATION DATE OF : 50 REPORT #: [id number] PHYSICIAN: ANGELITO KIMBLE MD PCP: LADY LEONG MD REPORT IS CONFIDENTIAL AND NOT TO BE RELEASED WITHOUT AUTHORIZATION
--- NOTE | 2021-09-06 06:46 | NUR ---
Pt went to DI for KUB. via w/c
--- NOTE | 2021-09-06 06:57 | NUR ---
BACK FROM DI, TOLERATED WELL, NGT BACK TO LIWS, IVF RESTARTED
--- NOTE | 2021-09-06 07:30 | NUR ---
Shift report recieved from RN Nita, pt resting in bed safely w/ call light in reach, pt denies any needs at this time.
--- NOTE | 2021-09-06 10:00 | NUR ---
Pt resting in bed safely w/ call light in reach. Morning assesment conplete and scheduled meds given per provider order. Pt c/o epigastric pain and nausea, PRN medication given per request. Pt denies an other needs at this time
--- NOTE | 2021-09-06 10:57 | NUR ---
PT KEPT ASKING FOR A SIP OF WATER FROM THE CUP THE MOUTH SWABS WERE IN. RN INFORMED. CALL LIGHT WITHIN REACH, NO FURTHER NEEDS AT THIS TIME.
--- NOTE | 2021-09-06 11:44 | NUR ---
CONNECTED WITH PT'S DEEPIKA. HE NEEDS TO LEAVE, WAS HOPING TO TALK TO DR KIMBLE. URSZULA CRUZ WILL HAVE DR KIMBLE CALL HIM. HE ACKNOWLEDGED AND EXPRESSED GRATITUDE. GAVE BLESSING, WILL FOLLOW
--- NOTE | 2021-09-06 12:00 | NUR ---
Pt c/o worsening anxiety, called and notified, TORB for 1mg IV Ativan Q6 PRN as needed for anxiety. PT resting in bed safely w/ call light in reach, daughter at bedside, and NGT w/ LIWS. PT denies any other needs at this time
--- NOTE | 2021-09-06 14:00 | NUR ---
Pt sitting up on side of bed w/ call light in reach, pt denies any pain or nausea, daughter at bedside, both pt and daughter requesting to speak w/ , informed them that he is in surgery and I will notify him as soon as possible.
--- NOTE | 2021-09-06 15:05 | NUR ---
UPON ENTERING ROOM, PT WAS DRINKING WATER FROM MOUTH SWAB CUP. WHEN THIS WIRE BASKET MAKER ASKED WHAT PT WAS DOING THEY QUICKLY SPIT WATER BACK OUT INTO CUP. PT SAID THEY WERE JUST WASHING THIER MOUTH OUT. PT BECAME INCREASINGLY AGITATED AND BEGAN TO SQUIRM AND SHAKE LEG. PT ASKING FOR SOMETHING TO CALM ANXIETY. PT THEN ASKED IF THEY COULD BUY SOME MEDS TO TAKE TO HELP. CALL LIGHT WITHIN REACH, NO FURTHER NEEDS AT THIS TIME. PT NOW CRYING AND SAYING THEY WILL NOT BE ALIVE BY THE TIME THE MD COMES. DAUGHTER IN ROOM.
--- NOTE | 2021-09-06 18:19 | NUR ---
Pt called for assistance, SBA to BSC pt voided, no back in bed w/ call light in reach. Denies any other needs at this time, daughter at bedside
--- NOTE | 2021-09-06 18:34 | NUR ---
ASSISTED PT OFF OF BSC. PERICARE DONE. PT DECIDED TO SIT ON EDGE OF BED FOR A WHILE. DAUGHTER IN ROOM. CALL LIGHT WITHIN REACH, NO FURTHER NEEDS AT THIS TIME.
--- NOTE | 2021-09-06 19:32 | NUR ---
In bed, anxious, reassured, calmer, R NGT in place,to LIWS, draining thick brown/red discharge. encouraged to elevate head, semi compliant, instructed on reasonig behind it. semi compliant. On 1L NC. patch over R eye and R top of foot. IVF infusing. ice chips given on requests. call light at hands reach. family at bedside.
--- NOTE | 2021-09-06 20:17 | NUR ---
PT SITTING UP AT SIDE OF BED, REPORT VERY ANXIOUS, ATIVAN 1MG GIVEN IV PRN AT THIS TIME.
--- NOTE | 2021-09-06 20:40 | NUR ---
c/o increaesd anxiety, received ativan earlier, reassured, to edge of bed, wants more ice chips, was given 1 cup of ice chips at 1999, instructed on sbo/rest/ngt. semi receptive. O2 1LNC in place, c/o IV site itchint. coban ivf infusing w/o problmes. iv site is a field start, daugther in room
--- NOTE | 2021-09-06 22:10 | NUR ---
pt very anxious, slightly confused, restless, slight agitaion but easily redirectable. was on O2 1LNC, sats 98%, dc'd at this time as she kept grabbing at o2 and ngt tubing. NGT R nare checked at insertion site, patent draining foamy white thick drainage. tolerating large amounts of ice chips, continues to requests oral fluids, instructed on NPO status and reasoning, increaed ager and irritability when told about the ice chips as she is tolerating 1 cup ice chips about every 10-45 mintues, daughter and this nurse reassured pt. Pt was medicated with Ativan earlier, partially to no effective, medicated at this time with Dilaudid 1mg IV per generalized/abd pain 04/02. Reassured multiple times by both this Rn and daughter in room. hob elevated semi compliant. Pulling at IV site, "Its itchint. koban reapplied as she had taken it off. explained reasoning for koban. semi receptive.. In bed hob at 45o NGT patent to LIWS, sluggish but patent. ivf infusing. pt calmer after many cues and reassurances.
--- NOTE | 2021-09-06 22:49 | NUR ---
Up to bsc. very anxious, forgetful, irritable, angry, reasured, semi receptive. explained to keep O2 on, coop with assessment, lungs dim L side, shallow fast breathing when anxious. no SOB with exertion noted. NGT in place, rubbing nasal tube tape. instructed on need to keep NGT in place, bowel rest, received more ice chips by another staff, instructed on need to slow down on ice chips. gut rest, sob. not receptive, explained to family in room, semi receptive same as pt. Pt calmer, sitting edge of bed. Up to BSC with 1PA. forgetful, fearful, reassured, voided small amount dark urine. back to bed.
--- NOTE | 2021-09-06 23:22 | NUR ---
increaed anxiety, restlessness, c/o nausea. pulling at ngt. insertion reasseeede. in place, draining pinkish colored drainage. medicated with phenergan 12.5mg iv. family in room, pt talked to via phone. increaed reassurance
--- NOTE | 2021-09-06 23:29 | NUR ---
MEDICATED WITH PHENERGAN 12.5MG IV C/O N/V FEELING. SITTING EDGE OF BED, FAMILY AT BEDSIDE, NGT TO MICHELLE
--- NOTE | 2021-09-07 01:23 | NUR ---
RESTING, ON ROOM AIR, NO DISTRESS, IVF INFUSING, NGT PATENT TO ILWS, FAMILY IN ROOM
--- NOTE | 2021-09-07 02:05 | NUR ---
PT STANDING EDGE OF BED, MOANING AND GROANING. TOUCHING NGT. PATENT TO LIWS, PINKISH RED DRAINAGE NOTED. MEDICATED WITH DILAUDID 1MG C/O 8/10 ABD PAIN AND DISCOMOFRT. ON ROOM AIR, SPOT CHECKS 94% ROOM AIR. REPOSITIONED BACK TO BED. IVF INFUSING. REASSURED. FAMILY IN ROOM
--- NOTE | 2021-09-07 03:47 | NUR ---
Resting, eyes closed, no distress. room air, IVF infusing, NGT patent to LIWS. family at bedside,
--- NOTE | 2021-09-07 04:37 | NUR ---
PT SITTING UP AT SIDE OF BED AFTER UP TO BSC, VOIDED 300ML. PT ALERT, SHE REPORTS SHE FEELS NAUSEA AND HER ANXIETY IS HIGH, ATIVAN ADMINISTERE 1MG IV PRN, PHENERGAN NOT AVAILABLE FOR ONE HOUR MORE. DAUGHTER AT BEDSIDE WITH HER
--- NOTE | 2021-09-07 04:40 | NUR ---
was medicated by charge nurse with Ativan 1mg IV per increaesd anxiety. this nurse went in and verbally reassured pt as she is still very anxious, restless, sitting edge of bed. touching NGT and rubbing at insertion site. will observe for accidentl pull of tube as pt contineus to c/o discomfort at insertion site and of being unable to take liquids due to NGT. touching and rubbing LFA IV site. intact, infusing w/o problems.explained to pt. not receptive. daughter in room
--- NOTE | 2021-09-07 06:05 | NUR ---
went to rom to medicated pt and heard sucking noise coming from her mouth, noted that NGT tubing was pulled half way by pt. unable to replace. increaed anxiety, screaming, not receptive to information being given. has been gagging probably due to NGT being in her mouth. was medicated earlier with Ativan, not effective. Verbally reassured and medicated with Dilaudid 1mg IV. O2 back on for comofrt. sats 89-91% on room air. will notify MD. Lungs w/o changes. abd slightly more distended. Pt wanted a drink of water and ice chips. Instructed on strict NPO until seen by MD per safety. Mouth care done and explained to her daughter. stated understnading, after 10-15 minutes pt was calmer, hob elevated in bed. no further dry heaving or c/o pain, calmer.
--- NOTE | 2021-09-07 06:41 | NUR ---
Pt has been awake off and on this shift, very anxious, restless, angry, irritable, forgetful, fearful, depressed mood. not receptive to teaching r/t NGT, to LIWS, draining thich clear foamy phlegm to red brown colored. O2 was taken off earlier as pt was c/o it bothered her and perico were 98% 1LNC,Pt has been pulling at NGT tubing off and finally ended up pulling it half way off into her mouth. dc'd by this RN as it was unable to reinsert due to pt increased anxiety, fearfulness and screaming and not receptive. Lungs dim at bases/clear takes shallow breathing at times. no changes from earlier assessment. abd more distended soft, very JUNI bowel tones. no bm, stated she was passing gas earlier, nono since then. Pt has been medicated with Dilaudid per generalized pain, Pheneraga per dry heaving, and Ativan per anxiety/restlessness with partiallt to good relief. Has required multiple verbal reassureances due to anxiety. ivf infusing. had been asking Calmer at this time. hob leevated. resting, family at bedside effective to partially effecitive
--- NOTE | 2021-09-07 06:54 | NUR ---
Message left via phone with Dr Funez r/t pt. will wait for him to call back.
--- NOTE | 2021-09-07 07:03 | NUR ---
DR KIMBLE NOTIFIED/UPDATED VERBALLY ON THIS SHIFT HAPPENINGS AND PT PULLING HER NGT. NO NEW ORDERS
--- NOTE | 2021-09-07 07:30 | NUR ---
Shift report received from RN Nita, pt resting safely in bed w/ call light in reach, no needs at this time.
--- NOTE | 2021-09-07 08:38 | NUR ---
ASSISTED PT TO BSC WITH CODIE BARRERA. PT IS CRYING AND BEGGING FOR WATER. CODIE BARRERA AND PT'S ATTEMPTED TO EDUCATE AND EXPLAINED TO PT MULTIPLE TIMES WHY THEY COULD NOT HAVE WATER. ASSISTED PT OFF OF BSC AND DID PERICARE. WHITE BOARD UPDATED. PT BACK IN BED NOW. CALL LIGHT WITHIN REACH, NO FURTHER NEEDS AT THIS TIME. PT IS STILL ARGUING WITH ON HAVING ICE WATER.
--- NOTE | 2021-09-07 10:00 | NUR ---
Pt resting safely in bed w/ call light in reach. Morning assesment complete and scheduled meds given. Pt c/o worsening anxiety, PRN Ativan given per providers orders. Pt's requested a POLST form for the pt.
--- NOTE | 2021-09-07 10:07 | NUR ---
PT SLEEPING ON EDGE OF BED. RAILS ARE UP, BED ALARM IS ON. CALL LIGHT WITHIN REACH.
--- NOTE | 2021-09-07 12:00 | NUR ---
this monorail charger operator in with primary rn alejo and alex rn to place ngt per dr muir order and pt/ wishes for comfort of abdominal distention/sbo. pt educated on procedure and at side for comfort. (pt pulled out her first ngt). Alejo attempted to place ngt to left nare as pt objected, and yelled to get away, and stop that she did not want it. PLACEMENT WAS NOT SUCCESSFUL DUE TO PT RESISTING. PT DISSAPOINTED THAT PT DID NOT GET NGT PLACED - POLST FORM HAS - DNR, AND COMFORT MEAUSURES - NGT IS FOR COMFORT/PAIN - BUT PT CLEARLY REFUSED AND WAS NON COMPLIANT. ALEJO NOTIFIED DR MUIR OF SITUATION -
--- NOTE | 2021-09-07 12:05 | NUR ---
Attempted to place NGT per Dr. Oseguera's orders, pt adamantly refused, yelling and slapping hands away. Pt's attempted to convine pt to allow us to place it but pt still refused, stating "Leave me the hell alone". Dr. Oseguera called and updated, no new orders at this time
--- NOTE | 2021-09-07 13:40 | NUR ---
PT IN A STATE OF DISTRESS. PT KEPT ASKING WHY THEY COULDNT HAVE ICE WATER OR ICE CREAM. URSZULA CRUZ EXPLAINED AND EDUCATED PT MULTIPLE TIMES ON THE REASONS FOR THEM BEING NPO. CALL LIGHT WITHIN REACH, NO FURTHER NEEDS AT THIS TIME. IN ROOM.
--- NOTE | 2021-09-07 14:36 | NUR ---
in room per daughters request - reviewed meds - repositioned pt to side.
--- NOTE | 2021-09-07 15:45 | NUR ---
PT DAUGHTER REQUESTED SOME ATIVAN - PT AWAKES BUT SEEMS NERVOUS - DAUGHTER WOULD LIKE HER TO BE MORE RELAXED AND COMFORTABLE. 1 MG ATIVAN GIVEN - PT ON SIDE.
--- NOTE | 2021-09-07 17:30 | NUR ---
pt standing up in room , daughter, laejo garay and [employer] surya in trying to calm pt - she is agitated and wants to go to her recliner, wants a damn drink of water and wants to go to her room to lay down. somewhat aware that she is not wanting treatment, denies pain, and daughter distraut and not sure what to do next as pt is refusing the ngt and no other real options. while pt was re directed to sit in bed and daughter ended up leaving as pt became more angry and yelling that this was a conspiracy to hold her against her will and we were out to get her. alejo called dr. muir and he orderd a hospitalist consult. pt agitated and wanting water stood up with estuardo rn and stephany garay and walked down the de anda with rn's at standby. she wanted water and was mad we would not let her. she walked to rn station then to [facility] doors then we used to take her to room, pt then refused to get out of the until we got her water or took her home. pt in room with alejo garay in .
--- NOTE | 2021-09-07 18:00 | NUR ---
PT EXTREMELY AGITATED AND REFUSED VS MULTIPLE TIMES. RN ANTHONY AWARE.
--- NOTE | 2021-09-07 18:34 | NUR ---
THIS RN CALLED DR. KIMBLE FOR ANOTHER UPDATE OF PT. [employer] SUPERINTENDENT PRESENT. NEW ORDER FOR HALDOL FOR AGITATION - THIS RN GAVE 2 MG PER ORDER WITH PRIMARY RN - O2 PULSE OX 92% - THIS RN UPDATED DR. JACKSON ON HALDOL ORDER - PT NOW IN BED WITH ALARM ON - LESS AGITATED.
--- NOTE | 2021-09-07 20:15 | NUR ---
2014 CBG WNL, NO COVERAGE NEEDED. ON ROOM AIR. LUNGS WITH FINE CRACKLES AT BASES DIM UPPERS. MOIST NON PRODUCTIVE COUGH PRESENT. NO EMESIS OR DRY HEAVING AT THIS TIME. C/O GENERALIZED AND ABD PAIN , MEDICATED WITH DILAUDID. iN BED, VERY ANXIOUS, BELLIGERENT, TRYING TO GET OUT OF BE. BED ALARM ON. VERBALLY REASSURED AND SOOTHED, CALMED DOWN AFTER ABOUT 10 MINUTES. CALMER, IN BED, EYES CLOSED AT THIS TIME, COOP WITH VITALS AND ASSESSMENT. ABD VERY FAINT BOWEL TONES, TENDER, BURPING, STATED SHE WAS PASSING GAS EARLY THIS AM BUT NONE SINCE LAST NIGHT??, FORGETFUL, ALL PROCEDURES EXPLAINED, EFFORTS PRAISED. LE ELEVATED, CONTINEUS TO HAVE LARGE BANDAID OVER R EYE AND TOP OF R FOOT, EDEMA TO LE, ELEVATED. IV SITE LFA INTACT, IVF INFUSING W/O PROBLEMS. NPO, MOUTH CARE, COOPERATIVE AFTE SEVERAL CUES
--- NOTE | 2021-09-07 20:27 | NUR ---
CALMER, EYES CLOSED, NO DISTRESS, RESP EVEN, UNLABORED. BED ALRM ON HOB ELEVATED. NPO, CALL LIGHT AT HANDS REACH
--- NOTE | 2021-09-07 22:00 | NUR ---
crawling out of bed, angry, irritated mood, after several cerbal cues and reassurance, stood at edge of bed, waleked to bsc, voided, small amount dsark urine, walked to hob, unsteady gait. back in to bed with assist, hob elevated. received Ativan 2mg IV, and IV med for elevated bp. procedures explained to pt. mouth care done by pt. calmed down. turns and repositions self. stated she is burpin, none noted during ths interaction. IVF infusing, on room air, Bed alarm on
--- NOTE | 2021-09-07 22:26 | NUR ---
PT CRAWLING OUT OF BED, BED ALARM ON. IVF INFUSING WELL. STOOD AT EDGE OF BED, WALKED UP TO HOB, UNSTEADY, BACK TO BED, HOB ELEVTED. VERY IRRITABLE, ANGRY, REASSURED, CALMED DOWN BUT STILL ANXIOUS AND ANGRY. BED ALARM ON, MOUTH CARE DONE. UPSET OVER NOT BEING ABLE TO HAVE FOODS OR A COKE. REASONING EXPLAINED NOT RECEPTIVE. CONT TO REASSURE, EXPLAIN ALL PROCEDURES. NEEDED. ATIVAN NOT EFFECTIVE, DENIES NEED FOR PAIN MED
--- NOTE | 2021-09-07 23:58 | NUR ---
pt trying to crawl out of bed, bed alamr on. belligerent, "I want to go home, I will get better at home, I need a pitcher of water and a 7-up or a coke", explained to pt about NPO status, not receptive, mouthc care with green moistened sponges done. reassured, took several minutes, Stood edge of bed, walked up to hob of bed, back into bed, room air. occassional dry heaving noted, no emesis. was medicated with phenergan earlier, semi effective. medicated with 1.5mg Dilaudid c/o 05/03 abd pain. repositioned self in bed, hob elevated to comofrt. calmer after multiplecues and verbal reassurances, sats 93% spot check on room air. Bed alarm on. IVF infusing
--- NOTE | 2021-09-08 00:43 | NUR ---
Resting, laying on R side, no distress, HOB elevated, calm, no distress, eyes closed. IVF infusing, bed alarm on
--- NOTE | 2021-09-08 03:08 | NUR ---
belligerent, irritable mood, screaming, she wants to go home. Up to BSC, voided, back to bed, 1pa, unsteady gait. Back to bed, reassured. Was medicated with Dilaudid per c/o abd pain. Pulling at IV site, intact. Bed alarm on. HOB and legs elevated
--- NOTE | 2021-09-08 03:13 | NUR ---
Admin dilaudid 1.5mg ivp admin for abd pain.
--- NOTE | 2021-09-08 04:15 | NUR ---
RESTING, LAYING ON R SIADE, HOB ELEVATED TO COMOFRT, RESP EVEN, UNLABORED, NO DISTRESS. IVF INFUSING, BED ALARM ON
--- NOTE | 2021-09-08 06:18 | NUR ---
Pt on room air, lungs dim at bases and faint crackles bilat, moist non prod cough at times. NPO , mouth care done, not tolerating. Up to BSC voiding QS. unsteady gait. IVF infusing w/o problems. Has been medicated with Phenergan per dry heaving X1, effective, per abd pain with Dilaudid 3X effective. abd distended, very hypoactive bowel tones, no bm. medicated with Ativan X2 partially effective. Very labile mood, angry, anxious, irritable, not receptive to instructions. Has required many cues and verbal reassurances, calmed down. Bed alarm in place, currently resting, eys closed, resp even, unlabored. call light at bedside.
--- NOTE | 2021-09-08 07:36 | NUR ---
REPORT RECEIVED FROM URSZULA SOLIS. pt CALLING OUT "GET AWAY FROM ME". COMPLAINS OF NAUSEA FROM FAMILY. PRN NAUSEA MEDICATION, AND PRN ATIVAN ADMINISTERED BY URSZULA SOLIS. IVF INFUSING WNL. pt RESTING IN BED WITH ICE PACK ON FOREHEAD. FAMILY IN ROOM.
--- NOTE | 2021-09-08 07:55 | NUR ---
IN pt ROOM FOR BS CHECK, pt RESTING IN BED, EYES CLOSED, BREATHING UNLABORED. NO DISTRESS NOTED. FAMILY REQUESTING pt TO REST.
--- NOTE | 2021-09-08 10:30 | NUR ---
DR. JACKSON IN ROOM DISCUSSING PLAN OF CARE WITH , pt'S DAUGHTER. pt SLEEPING, AWAKENS TO VOICE AND CLOSING EYES. MINIMAL RESPONSE TO QUESTIONS "YES/NO". DENIES ANY PAIN. ASSESSMENT COMPLETE. BOWEL TONES PRESENT AT THIS TIME, pt DENIES PAIN WITH PALPATION. pt NOT ANSWERING ORIENATION QUESTIONS AT THIS TIME. IV SITE FLUSHED WNL AND IVF AND IV MG RIDER INFUSING ORDERED. DRESSING TAKEN DOWN AND REPLACED TO PROTECT IV SITE. ASSISTED TO REPOSITION TO LEFT SIDE. PILLOW BETWEEN LEGS. VSS. DAUGHTER FREDDY IN ROOM STEPS OUT FOR BREAK. FAMILY IS CONSIDERING SURGERY OPTION AT THIS TIME. BED ALARM ON.
--- NOTE | 2021-09-08 12:45 | NUR ---
CONSENT FOR SURGERY SIGNED BY FAMILY AND IN CHART. QUESTIONS ANSWERED. SBA UP TO BSC FOR VOID AND MEDIUM SIZE BM. SURGICAL WIPE DOWN COMPLETE. LINENS CHANGED. IVF INFUSING WNL. DR. KIMBLE NOTIFIED OF BM. SURGERY NURSES IN ROOM.
--- NOTE | 2021-09-08 15:36 | NUR ---
09/08/21 1536 DOLLY CRUZ 1520 PATIENT TO CCU, INTUBATED. PATIENT APPEARS STABLE. RT IN ROOM TO HELP MANAGE AND SET UP. PATIENT IS BREATHING EVEN AND REGULAR. DRESSING TO ABDOMEN C/D/I.
--- NOTE | 2021-09-08 15:50 | NUR ---
ARRIVED TO ROOM RESECURED EET , ORAL CARE GIVEN 7.0 21 @ TEETH , BILATERAL BS ABG OBTAINED EET MIDDLE OF MOUTH , PT UPRIGHT ANR RN AT BEDSIDE
--- NOTE | 2021-09-08 16:09 | NUR ---
REPORT RECEIVED FROM PACU NURSE DOLLY. PT ON PRECEDEX INFUSION FOR SEDATION, RESTRAINTS IN PLACE. HR 80'S.
--- NOTE | 2021-09-08 16:30 | NUR ---
ASSESSMENT DONE. PT ON VENTILATOR WITH FIO2 50%, TV 460, RATE 18 AND PEEP 5. ETT 7.0 22 AT LIP. LUNGS CLEAR. ABD WITH 20CM GAUZE DRESSING IN PLACE, CDI. EL DRAINING YELLOW URINE RECENTLY EMPTIED BY PACU. WRIST RESTRAINTS IN PLACE, PT IS OCCASIONALLY WAKING AND MOVING ARMS UP TO ETT. WILL START PT ON PRECEDEX GTT PER DR JACKSON ORDER.
--- NOTE | 2021-09-08 16:39 | NUR ---
AND DAUGHTER IN TO SEE PT, UPDATE ON PT STATUS GIVEN, AND NOW THEY ARE LEAVING FOR THE NIGHT, REPORTING THAT THEY ARE HAPPY WITH THE CARE OF THE PT.
--- NOTE | 2021-09-08 17:53 | NUR ---
PT CONT TO REST WITH EYES CLOSED, RESP SYNCHRONOUS WITH VENT WITH RATE AT 18. PRECEDEX AT 0.8 MCG/KG/HR.
--- NOTE | 2021-09-08 19:00 | NUR ---
PT REPOSITIONED, AWAKENS WITH MOVEMENT, NODS YES THAT SHE IS IN PAIN. 1MG IV DILAUDID GIVEN. PT BACK TO SLEEP.
--- NOTE | 2021-09-08 20:20 | NUR ---
PT FEBRILE AT 101.4 F VIA EL TEMP PROBE. PRN TYLENOL ADMINSITERED AND EXTRA BLACKETS REMOVED. WILL CONTINUE TO MONITOR.
--- NOTE | 2021-09-08 21:15 | NUR ---
ORAL CARE PROVIDED AND REPOSITIONED TO RIGHT SIDE.
--- NOTE | 2021-09-08 21:54 | NUR ---
PT REMAINS FEBRILE AT 102.5 F 90 MINUTES POST RECTAL TYLENOL. ALL LINEN AND SOCKS REMOVED FROM PT AND FAN POSITIONED ON PT. WILL CONTINUE TO MONITOR AND PLACE ICE PACKS IF NEEDED.
--- NOTE | 2021-09-08 22:15 | NUR ---
DR. JACKSON NOTIFIED OF FEVERS AND UOP 15-35mL/HOUR. CLOOD CULTURES ORDERED, WILL STAND BY FOR POSSIBLE FUTURE ORDERS.
--- NOTE | 2021-09-09 03:15 | NUR ---
PT REMAINS FEBRILE AT 102 F. PT HAS FAN ON AND ICE PACKS TO AIRPITS ANS GROIN, UNABLE TO ADMINISTER PRN TYLENOL D/T FREQUENCY ORDERED. NOTIFIED DR. JACKSON, NO NEW ORDERS AT THIS TIME. WILL NOTIFY DR. KIMBLE PER DR. JACKSON INSTRUCTION. PT PLACED ON COOLING PAD. WILL CONTINUE TO MONITOR.
--- NOTE | 2021-09-09 05:26 | NUR ---
PT REMAINS FEBRILE AT 103.2 VIA EL TEMP. RECTAL TYLENOL ADMINISTERED 1 HOUR AGO, ICE PACKS TO ARM PITS, GROIN, AND LAYING ON COOLING BLANKET. DR. KIMBLE NOTIFIED, SEE NEW ORDERS FOR ANTIBIOTICS AND INCREASED TYLENOL DOSE.
--- NOTE | 2021-09-09 06:07 | OR ---
[facility] [address] [place], [place] [address] Signed DATE OF OPERATION: 09/08/2021 SURGEON: Angelito Kimble MD PREOPERATIVE DIAGNOSES: 1. Small bowel obstruction. 2. Acute on chronic malnutrition. POSTOPERATIVE DIAGNOSES: 1. Small bowel obstruction. 2. Acute on chronic malnutrition. OPERATIVE PROCEDURES: 1. (3-4 cm) with [id number] hand-sewn anastomosis in two layers. 2. Placement of left subclavian triple-lumen catheter. ESTIMATED BLOOD LOSS: None. FINDINGS: Fortunately, Elisabeth had one dominant adhesion consistent with the CT scan. It represented a bandlike constriction. It was easily resected. The rest of the distal small bowel was decompressed in the proximal bowel. The small bowel was edematous and full of fluid, but quite free of adhesions. INDICATIONS: Elisabeth is a 71-year-old, obese female, who I met back in January of 2021. She had a small bowel obstruction at that time. She cleared up very nicely within a few days and went home. She told me at that time she did not want abdominal surgery. She also suffers with neuropathy and that is quite an issue for her on a daily basis. She came back with another bowel obstruction and again the CT scan was consistent with the same location. I had explained the need more likely this was in the surgery. She once again told me she was not very interested in surgery. She wanted to wait a few days to see if we would open up once again. In the meantime, she became more confused off her gabapentin and with her bowel obstruction. Each day, I had long discussions with not Elisabeth, but her and eventually their middle daughter. Dr. Ureña, clinical implementation specialist was also involved. We decided that dying from a bowel obstruction of course is quite miserable. In that regard, we decided we would go for laparotomy and lysis of adhesions, small bowel resection as indicated. We anticipate she is going to be here a week or so with ongoing ICU care. In addition, she is going to need nutritional support. Consequently, Electronically Signed By: ANGELITO KIMBLE MD 09/09/21 0607 PATIENT NAME: ELISABETH GARCIA OPERATIVE REPORT DATE OF : 50 REPORT #: [id number] PHYSICIAN: ANGELITO KIMBLE MD PCP: LADY LEONG MD REPORT IS CONFIDENTIAL AND NOT TO BE RELEASED WITHOUT AUTHORIZATION [facility] [address] [place] [id number] Signed we also plan on placing a central venous catheter. I had reviewed the risk with the family including, but not limited to bleeding, infection, scarring, change in contour of the skin, damage to bowel, anastomotic leak, recurrent small-bowel obstructions, incisional hernias, as well as other unforeseen comorbidities. She has also had risk of central venous catheter placement including, but not limited to bleeding, scarring, change in contour of the skin, infection and pneumothorax requiring chest tube placement. They had expressed understanding and wished to proceed. PROCEDURE IN DETAIL: Elisabeth was brought down to our operating room and placed in the supine position under general endotracheal tube anesthesia. Her DNR orders have been rescinded for 48 hours. She was already on preoperative subcutaneous heparin. SCDs were utilized. She was prepped and draped in the usual sterile fashion. A Navarro catheter had been inserted with return of clear yellow urine without difficulty. Standard periumbilical midline incision was made and the abdomen was entered carefully with the cautery. She had some adhesions of the omentum to her previous infraumbilical midline incision. Fortunately, the right side of the abdomen was not here and we were able to access the small bowel quite readily. We could easily see dilated small bowel loops. We followed it down to her constricted band and then beyond that the ileum was completely decompressed. We were able to move the bowel around quite readily. We did not feel there were any other adhesions quite frankly. We therefore used our linear stapler to divide the small bowel on either side of the chronically scarred stricture. We then brought the bowel together and [id number], who performed a hand-sewn anastomosis in two layers with Vicryl and silk sutures. That anastomosis is 2.5 maybe 3 cm in length. We had to use a bowel clamp on the proximal bowel as there was quite a bit of pressure coming from her bilious fluid. Once that was completed, the bowel was returned to the abdomen. We reapproximated the midline fascia with interrupted #1 [id number] PDS sutures. Local anesthetic was injected into her abdominal wall. Wound was irrigated and suctioned out until clear. We brought the dermis back together with interrupted 3-0 Monocryl subcuticular sutures. The skin was reapproximated with dianne. Dry gauze and tape were applied. She was left with her Navarro catheter and on the ventilator. The entire tube was then taken down. After this, we could see that she has had a right carotid endarterectomy as well as what appears to be a thyroid incision. We therefore avoided the right side of her neck and went over to the left side. The entire neck and chest wall were prepped and draped in the usual sterile fashion. We were able to enter the left subclavian vein on the first pass of the needle without difficulty. I completed read scrub and read down. The wire was able to feed with no resistance whatsoever. We dilated the tract and then the dilator curved in the appropriate direction. We then inserted the triple-lumen catheter and all ports were able to draw and flush quite readily. The catheter was held in place with interrupted silk sutures. Dry plastic occlusive dressing was then applied. Elisabeth Electronically Signed By: ANGELITO KIMBLE MD 09/09/21 0607 PATIENT NAME: ELISABETH GARCIA OPERATIVE REPORT DATE OF : 50 REPORT #: [id number] PHYSICIAN: ANGELITO KIMBLE MD PCP: LADY LEONG MD REPORT IS CONFIDENTIAL AND NOT TO BE RELEASED WITHOUT AUTHORIZATION [address] [address] Signed was left intubated and was taken to the ICU in stable, but serious condition. Angelito Kimble MD ALB/MODL /[id number] cc: Lady Leong MD Copies: LADY LEONG MD ~ Electronically Signed By: ANGELITO KIMBLE MD 09/09/21 0607 PATIENT NAME: ELISABETH GARCIA OPERATIVE REPORT DATE OF : 50 REPORT #: [id number] PHYSICIAN: ANGELITO KIMBLE MD PCP: LADY LEONG MD REPORT IS CONFIDENTIAL AND NOT TO BE RELEASED WITHOUT AUTHORIZATION
--- NOTE | 2021-09-09 07:49 | EKG ---
[facility] [address] [facility] [place] [address] Signed Sinus tachycardia Septal infarct (cited on or before 16-FEB-2021) Possible Lateral infarct , age undetermined Abnormal ECG When compared with ECG of 16-FEB-2021 10:07, Borderline criteria for Lateral infarct are now present Nonspecific T wave abnormality now evident in Lateral leads Confirmed by PAGE JACKSON MD ([id number]) on 09/09/2021 7:49:25 AM Electronically Signed By: PAGE JACKSON MD 09/09/21 0749 PATIENT NAME: ELISABETH GARCIA Electrocardiogram DATE OF : 50 PHYSICIAN: PAGE JACKSON MD REPORT #: [id number] REPORT IS CONFIDENTIAL AND NOT TO BE RELEASED WITHOUT AUTHORIZATION
--- NOTE | 2021-09-09 07:53 | NUR ---
REPORT RECEIVED FROM NELSON SEAMAN. IN TO CHECK ON PT, PT RESTING WITH EYES CLOSED. RESPONDS WITH WINCING AND MOVING ARMS THEN SETTLES BACK DOWN. RR 22-24, SPO2 94% WITH FIOW 50%. RT IN TO CHECK ON PT AND DISCUSS PLAN FOR POSSIBLE EXTUBATION TODAY.
--- NOTE | 2021-09-09 08:36 | NUR ---
PT AWAKE AND RESTLESS, 1MG IV DILAUDID GIVEN. RR 28, SPO2 92% FIO2 50%.
--- NOTE | 2021-09-09 09:22 | NUR ---
IN TO SEE PT QUICKLY THEN WENT OUT TO WAIT FOR DAUGHTERS THAT ARE ALSO COMING.
--- NOTE | 2021-09-09 09:47 | NUR ---
DR JACKSON TALKING WITH AND DAUGHTER
--- NOTE | 2021-09-09 10:45 | NUR ---
PER AM MEETING PATIENT TO REMAIN ON VENT THROUGH THE MORNING. WILL ATTEMPT TO COMPLETE CASE MANAGEMENT ASSESSMENT THIS AFTERNOON.
--- NOTE | 2021-09-09 11:53 | NUR ---
PRECEDEX TITRATED DOWN TO 0.4MCG/KG/HR.
--- NOTE | 2021-09-09 12:00 | NUR ---
PT REPOSITIONED, ASSESSMENT DONE. RT CALLED REGARDING SPO2 89-90%, VENT SETTINGS ADJUSTED BY RT, FIO2 UP TO 60% AND PEEP UP TO 10 FROM 8. PT OPENS EYES TO VERBAL STIMULATION, BUT DOES NOT ANSWER WHEN ASKED IF SHE IS IN PAIN, EYES OPEN BRIEFLY THEN CLOSE. DR JACKSON ON UNIT AND GIVEN UPDATE REGARDING LOW URINE OUTPUT AND INCREASED O2 NEEDS AND SHE STATES SHE WILL ORDER SOME LASIX.
--- NOTE | 2021-09-09 12:32 | NUR ---
DAUGHTERS FROM [place] HERE TO SEE PT WITH SUPERVISORS APPROVAL.
--- NOTE | 2021-09-09 12:51 | NUR ---
DR KIMBLE NOTIFIED OF LOW URINE OUTPUT, NEW ORDERS GIVEN.
--- NOTE | 2021-09-09 13:27 | NUR ---
Lassix given, IV LAC remains patent, flushes easily. Daughters remain in the room with patient, med explained to family members. No patient changes noted at this time.
--- NOTE | 2021-09-09 15:32 | NUR ---
PT REPOSITIONED. HAS HAD INCREASE IN URINE OUTPUT SINCE LASIX WAS GIVEN. FAMILY REMAINS AT BEDSIDE.
--- NOTE | 2021-09-09 16:00 | NUR ---
OVER TO UNIT, PATIENT RMAINS INTUBATED AT THIS TIME.
--- NOTE | 2021-09-09 18:00 | NUR ---
AIR LEAK HEARD FROM THROAT, RT IN TO ASSESS PT, INFLATES CUFF PRESSURE A BIT AND NOISE NO LONGER HEARD. TYLENOL SUPPOSITORY GIVEN FOR FEVER.
--- NOTE | 2021-09-09 18:51 | NUR ---
DR JACKSON IN TO CHECK ON PT. INCISION NOTED TO HAVE SOME REDNESS STARTING ON THE LEFT SIDE APPROX [id number], WILL PLACE PICTURES ON CHART AND RIKA AREA SOME SEROSANG DISCHARGE NOTED ON PADDING PLACED ON PTS ABD. SOME STABLES NEAR BOTTOM OF INCSION STARTING TO LOOSEN AND COME OUT. CALL TO DR KIMBLE TO UPDATE HIM-ORDER GIVEN TO REINFORCE AREA WITH STERISTRIPS. DR KIMBLE ALSO UPDATED ON URINE OUTPUT, CONT TO MONITOR FOR NOW. DR JACKSON PLANNING ON ORDER LABS NOW AND SOME VANCOMYCIN. PHARMACIST NOTIFIED AND IS MIXING THE VANCO NOW.
--- NOTE | 2021-09-09 23:17 | NUR ---
PT TOLERATING VENT. STIRS TO VOICE BUT UNABLE TO FOLLOW COMMANDS. PROPOFOL STARTED FOR SEDATION AND PRECEDEX PAUSED. PT REPOSITIONED AND ORAL CARE PROVIDED. RARE BOWEL TONES HEARD, NO SIGNS OF PT PASSING GAS. MIDLINE INCISION WITH SMALL DIHISCED AREA DISTAL END WITH ERYTHEMA TO PERIWOND AND INCISION. SOME CAITLYN DISPLACED. MODERATE TO LARGE AMOUNT OF SANGUINEOUS DRAINAGE. ABDOMEN WITH 1+ PITTING EDEMA. URINE OUTPUT 25cc-40cc AT THIS TIME. VITAL SIGNS STABLE. WILL CONTINUE TO MONITOR.
--- NOTE | 2021-09-09 23:46 | NUR ---
PT REMAINS FEBRILE AT 102.6 VIA FOELY TEMP. PT HAS RECEIVED RECTAL ASA AND APAP, DUE FOR NEXT DOSE OF APAP NOW. PT HAS ICE PACKS TO GROIN AND BILATERAL ARM PITS, FAN ON. WILL CONTINUE TO MONITOR.
--- NOTE | 2021-09-10 00:27 | NUR ---
PT REPOSITIONED, NÉSTOR CARE AND ORAL CARE COMPLETED, RECTAL APAP ADMINISTERED. WILL CONTINUE TO MONITOR.
--- NOTE | 2021-09-10 03:21 | NUR ---
IVF NOT INFUSING PER MD ORDER TO KEEP TOTAL FLUIDS PER HOUR 120mL/HR OR LESS. PT HAS CURRENT RATE OF 149.5mL/HR WITH TPN, LIPIDS, PROPOFOL, AND PRECEDEX.
--- NOTE | 2021-09-10 04:04 | NUR ---
PT'S ABDOMINAL DRESSING CHANGED APPROXIMATELY EVERY 6 HOURS WITH MODERATE TO LARGE AMOUNT OF SANGUINEOUS DRAINAGE. ABDOMEN IS SOFT AND TENDER AEB FACIAL GRIMACE WHEN PALPATED. WHEN ABDOMEN IS PALPATED, SANGUINEOUS DRAINAGE FLOWS FROM DISTAL INCISION. 2-3 CAITLYN ARE DISPLACED IN THIS AREA THAT IS DEHISCED. PICTURE OF WOUND TAKEN AND PLACED IN PAPER CHART. PRN PAIN MEDICATION ADMINISTERED. WILL CONTINUE TO MONITOR.
--- NOTE | 2021-09-10 07:57 | NUR ---
ON VENT, SETTINGS, FIO2-50,VT-430, AC-18, PEEP-10. ETT SIZE-7.0. FAMILY MEMBERS IN ROOM. EL CATH PATENT, LEFT SUBCLAVIAN IV SITE INTACT. 2 PORTS USED, TPN INFUSING, PROPOFOL AT 40 MCG/MIN, PRECEDEX AT 0.4 MCG/KG/HR. TALKED WITH FAMILY ABOUT POC FOR DAY, INDICATE UNDERSTANDING.
--- NOTE | 2021-09-10 10:00 | NUR ---
NO CHANGES. IN PATIENT CONDITION OR VENT SETTINGS. REMAINS ON TV-430, PEEP-10, AC-18, FIO2-50. PIP-26, ETCO2-26.
--- NOTE | 2021-09-10 11:00 | NUR ---
MANY FAMILY IN ROOM.
--- NOTE | 2021-09-10 13:30 | NUR ---
ADL CARES GIVEN, DILAUDID 1 MG IV GIVEN FOR PAIN.
--- NOTE | 2021-09-10 14:27 | NUR ---
PT ON VENT, DAUGHTER FREDDY IN RM. DEEPIKA LEFT TO CHECK ON DOGS AND WILL RETURN. FREDDY UNDERSTANDS PT'S POC. SHARED HOW DIFFICULT THIS PAST YEAR HAS BEEN ON HER FAMILY-PARENTS ESPECIALLY. WILL CHECK WITH HER FATHER WHEN HE RETURNS REGARDING HAVING THEIR COMBO WELDER COME. GAVE ENCOURAGEMENT, HAD PRAYER. WILL FOLLOW NEEDED
--- NOTE | 2021-09-10 15:30 | NUR ---
DR. LEONG HERE TO SEE PATIENT. ORDERS RECIEVED TO TITRATE SEDATION MEDICATION DOWN. THIS DONE. SEE EMAR FOR TITRATION. URINE OUTPUT VERY POOR. URINE IS CONCENTRATED. NG CLAMPED AT THIS TIME DUE TO MEDICATIONS.
--- NOTE | 2021-09-10 16:00 | NUR ---
ASSESSMENT DONE. LUNGS WITH COURSE BREATH SOUNDS UPPER LOBES. MINIMAL URINE OUT. NO BOWEL SOUNDS HEARD. NG TO LIS. NOT RESPONDING TO COMMANDS AT THIS TIME. ABD DRESSING TO LOWER ABD.
--- NOTE | 2021-09-10 16:47 | NUR ---
OFF ALL SEDATION AT THIS TIME.
--- NOTE | 2021-09-10 18:10 | NUR ---
HAS BEEN ON CPAP SINCE 1739, RR-30, FIO2-45, SAT-95. EYES OPEN, NOT FOLLOWING COMMANDS. DR. LEONG HERE AND NOW BACK ON FULL SUPPORT OF VENT. TV-380, FI02-45,AC-18, PEEP-10, PIP-15, ETCO2-27. PERCEDEX GTT ON AT 0.8 MCG/KG/HR. PROPOFOL GTT REMAINS OFF PER MD ORDERS. MITCH RR-31.
--- NOTE | 2021-09-10 19:38 | NUR ---
PT TOLERATING VENTILATOR WITH VSS. EYES OPEN TO VOICE, PT DOES NOT FOLLOW COMMANDS. LUNGS ARE DIMINISHED THROUGHOUT WITH CRACKELS RLL, COARSE RUL. 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 LEFT EYE REACTIVE TO LIGHT AND BRISK AT 3. NO ACUTE CONCERNS AT THIS TIME. WILL CONTINUE TO MONIOTR.
--- NOTE | 2021-09-10 21:15 | NUR ---
PT TURNED AND ORAL CARE PROVIDED. MODERATE AMOUNT OF THICK, YELLOW/WHITE SECREATIONS FROM ETT.
--- NOTE | 2021-09-10 23:00 | NUR ---
PT REPOSITIONED. TOLERATING VENT. WILL CONTINUE TO MONITOR.
--- NOTE | 2021-09-11 01:11 | NUR ---
PT REPOSITIONED AND ORAL CARE PROVIDED.
--- NOTE | 2021-09-11 03:59 | NUR ---
BED BATH AND PARTIAL BED CHANGE PROVIDED. PT REPOSITIONED, ORAL CARE COMPLETED. PERIPHERAL IV REMOVED D/T LEAKING, CENTRAL LINE DRESSING CHANGED TO APPLY BIOPATCH. UOP CONSISTANTLY 35-50mL/HR. MODERATE THICK ETT SECRETIONS. RIGHT SIDE LUNG SIDDIQI DIM WITH INTERMITTENT COARSNESS, LEFT SIDE DIMINISHED THROUGHOUT. MIDLINE INCISION DRAINING SMALL TO MODERATE SANGUINEOUS DRAINAGE, DRESSING CHANGED X2.
--- NOTE | 2021-09-11 04:59 | NUR ---
PT IS TACHYPNEIC AT 40 WITH FACIAL GRIMACING. PRN MORPHINE ADMINSTERED AND PT REPOSITIONED.
--- NOTE | 2021-09-11 05:24 | NUR ---
PT'S RR HAS DECREASED TO 30-35 30 MINUTES POST PRN MORPHINE. FACIAL GRIMACING DECREASED.
--- NOTE | 2021-09-11 07:10 | NUR ---
Spoke with pts family. They deny needs at this time. Plan for extubation today.
--- NOTE | 2021-09-11 08:00 | NUR ---
ASSESSMENT AND CCU CARE BUNDLE COMPLETED AT THIS TIME. PT OPENS EYES TO VOICE BUT CANNOT FOLLOW ANY COMMANDS. LUNGS SOUND COARSE IN BILATERAL AIR SIDDIQI. SECRETIONS NOTED IN ET TUBE, ET TUBE SUCTION COMPLETED AT THIS TIME. PT HEART RATE IN THE MID 90S. AND INCREASED TO 105 WITH ACTIVITY. AXILLARY TEMP OF 102.1 PT APPEARS DIAPHORETIC. GENERALIZED EDEMA NOTED INCISION IS OPEN TO AIR, WELL APPROXIMATED EDGES SCANT SEROSANGUINOUS DRAINAGE NOTED. BOWEL TONES ARE RARE. PLAN OF CARE ESTABLISHED WITH FAMILY AT THIS TIME. WILL CONTINUE TO MONITOR.
--- NOTE | 2021-09-11 08:15 | NUR ---
TYLENOL SUPPOSITORY GIVEN FOR FEVER OF 102.1 AXILLARY.
--- NOTE | 2021-09-11 08:59 | NUR ---
RT IN ROOM AT THIS TIME PROVIDING ORAL CARE TO PT AND COMPLETING ASSESSMENT.
--- NOTE | 2021-09-11 09:06 | NUR ---
PRECEDEX TITRATED DOWN AT THIS TIME (SEE EMAR). IV ABX INFUSING ALONG WITH TPN. THIS RN, , AND DAUGHTER REMAIN AT BEDSIDE.
--- NOTE | 2021-09-11 10:00 | NUR ---
Oral care provided with chlohexidine, EET TO THE MIDDLE OF THE MOUTH , SUCTIONED DOWN EET TUBE MODE AMOUNT TO PALE YELLOW SECRETIONS , PT PREPARING TO BE PLACED ON WEAN TRIAL. RN AT BEDSIDE , RN TO NOTIFY WHEN PATIENT IS MORE A WAKE. [address] STARTED
--- NOTE | 2021-09-11 10:12 | NUR ---
SEDATION OFF AT THIS TIME. PT OPENS EYES TO VOICE, BUT WILL NOT FOLLOW COMMANDS. OCCASIONALLY BITING AT ET TUBE. HEART RATE 105-110 AT REST. SPO2 = 94%. DAUGHTER AND REMAIN AT BEDSIDE. WILL CONTINUE TO MONITOR.
--- NOTE | 2021-09-11 11:10 | NUR ---
PT EXTUBATED AT THIS TIME. PLACED ON 6 L NC. SPO2 = 93%. PTS EYES OPENING TO VOICE. LUNGS SOUND COARSE IN THE BASES, MILD GRUNTING NOTED, NO STIDOR NOTED. BLOOD PRESSURES IN THE 170S SYSTOLICALLY. PT REMAINS DROWSY AND STILL NOT FOLLOWING COMMANDS. IV ABX CONTINUE TO INFUSE. CALL LIGHT WITHIN REACH. WILL CONTINUE TO MONITOR.
--- NOTE | 2021-09-11 13:07 | NUR ---
ASSESSMENT COMPLETED. PT TURNED, GIVEN A TYLENOL SUPPOSITORY FOR FEVER. PT GROANING WITH MOVEMENT. DRAINAGE CONTINUES TO COME FROM MIDLINE ABDOMINAL INCISION. ABD PAD IN PLACE. IV ABX INFUSING. FAMILY REMAINS AT BEDSIDE, ALL QUESTIONS ANSWERED. WILL CONTINUE TO MONITOR.
--- NOTE | 2021-09-11 13:34 | NUR ---
PT MOANING, NOT CONSOLABLE WITH TOUCH OR VERBAL REASSURANCE. RESPIRATIONS IN THE 30S, HEART RATE AT 100 BPM AT THIS TIME. IV MORPHINE ADMINSITERED (SEE EMAR). PT NO LONGER MOANING. WILL CONITNUE TO CLOSELY MONITOR.
--- NOTE | 2021-09-11 14:30 | NUR ---
PT MOANING LOUDLY IN PAIN, AUDIBLE FROM NURSES STATION. TEARS IN EYES. STILL NOT RESPONDING TO QUESTIONS. BREATHING APPEARS LABORED. RR =30, HEART RATE AT 110 , SPO2 = 93% ON 4 L NC. PAIN MEDICATION ADMINISTERED AT THIS TIME (SEE EMAR). WILL CONTINUE TO MONITOR.
--- NOTE | 2021-09-11 14:44 | NUR ---
MET WITH DEEPIKA ON WAY OUT. HE CONFIRMED PT'S EXTEBATION AND SHE IS NOW BREATHING ON HER OWN, BUT FEELS HER TIME IS SHORT. GAVE ENCOURAGEMENT AND WILL CONTINUE TO FOLLOW
--- NOTE | 2021-09-11 15:27 | NUR ---
PT CONTINUES TO MOAN. ATTEMPTED TO CONSOLE PT AND REPOSITION IN BED. THIS RN WILL CONTINUE TO MONITOR.
--- NOTE | 2021-09-11 16:30 | NUR ---
ASSESSMENT COMPLETED. PT CONTINUES TO MOAN INTERMITTENTLY. ABDOMINAL INCISION CONTINUES TO DRAIN SEROSANGINOUS FLUID. ABD PAD CHANGED AT THIS TIME. PTS LUNGS SOUNDS REMAIN UNCHANGED. HEART RATE IN THE 90-100 AT REST. BLOOD PRESSURES REMAIN ELEVATED. SPO2 = 92-94% ON 4 L NC. LIPIDS AND TPN INFUSING, OTHER PORTS ON CENTRAL LINE HEPARIN LOCKED. WILL CONTINUE TO MONITOR.
--- NOTE | 2021-09-11 17:57 | NUR ---
PT WORE CPAP FOR 30 MINUTES, NOW BACK ON NC AT 4 L. SPO2 = 94%. GIVEN 2 MG IV PAIN MEDICATION AT THIS TIME (SEE EMAR).
--- NOTE | 2021-09-11 18:00 | NUR ---
PT FIT WITH MEDIUM MASK , RESTING COMFORTABLY ON CPAP
--- NOTE | 2021-09-11 20:00 | NUR ---
ARRIVED TO SHIFT, PT IN BED WITH SPONTANEOUS MOVEMENT HOWEVER NOT FOLLOWING COMMANDS, DOES OPEN HER EYES TO VERBAL STIMULI HOWEVER DOES NOT TRACK, PT IS MOANING AND MOVING HEAD BACK AND FORTH, PAIN MEDS GIVEN WELL HALDOL. PT IS HYPERTENSIVE HOWEVER HAS SCHEDULED LABETALOL. PT CURRENTLY ON NASAL CANNULA AT 4 LPM, PLAN TO PLACE PT ON CPAP LATER TONIGHT
--- NOTE | 2021-09-11 20:30 | NUR ---
DR. LEONG NOTIFIED OF CB, MD TO CHANGE INSULIN FROM MODERATE SLIDING SCALE TO HIGH. ALSO PER MD, DISCONTINUE PRECEDEX ORDER.
--- NOTE | 2021-09-12 03:34 | NUR ---
PT HAVING IRREGULAR RESPIRATIONS, TACHYPNEIC, DECREASING SATS TO MID 80'S DESPITE INCREASING FI02 ON BIPAP TO 60%, RT NOTIFIED AND WILL COME ASSESS PT WITH RN
--- NOTE | 2021-09-12 03:52 | NUR ---
DURING ASSESSMENT WITH RT, IT WAS AGREED PT WAS AGONALLY BREATHING AND REQUIRING INCREASED FI02 TO MAINTAIN OXYGEN SATURATION. DURING THE NIGHT, MULITPLE DOSES OF MORPHINE WERE GIVEN TO HELP WITH PAIN WELL AIR HUNGER. DR LEONG WAS NOTIFIED TO DISCUSS PTS DECREASING RESPIRATORY DRIVE. HE AGREED THAT FAMILY SHOULD BE NOTIFIED. RN CALLED SPOUSE, BILL, AND NOTIFIED HIM OF PTS DECLINING RESPIRATORY DRIVE AND ENCOURAGED HIM AND FAMILY TO BE AT BEDSIDE IF THEY WOULD LIKE.
--- NOTE | 2021-09-12 05:00 | NUR ---
FAMILY REQUESTED BIPAP BE TAKEN OFF PT AND TO BEGIN COMFORT MEASURES, DR LEONG AND DR KIMBLE BOTH NOTIFIED OF CHANGE. FAMILY WITH PT AT BEDSIDE, BIPAP REMOVED WELL NG. MORPHINE GIVEN PER OCT. SPIRITUAL CARE WITH FAMILY. MONITOR TURNED TO COMFORT CARE IN ROOM. PT AGONAL BREATHING, RT NOTIFIED OF BIPAP REMOVAL AND COMFORT CARE MEASURES
--- NOTE | 2021-09-12 05:11 | NUR ---
TIME OF 0503, LUNGS AUSCULTATED FOR A FULL MINUTE WELL HEART TONES, DR KIMBLE NOTIFIED OF PASSING, FAMILY AT BEDSIDE WITH PATIENT
--- NOTE | 2021-09-12 05:41 | NUR ---
Family indicated to medical staff wish to remove breathing assistance. Remaining family was called in. Upon their arrival I accompanied them to pt room where Holger and daughter Melanie were already present. RN confirmed wish to remove breathing support. Family consented. Holger shared that he and pt had talked and she did not wish intervention past the point of quality of life. Family upset but supportive. All expressed to pt that it was OK and that they loved her. Family appears to be supportive of one another and in accord. Offered prayers of commendation as well as peace and comfort for family. Family took some time after pt had passed and chose [facility] as home. During explanation of next steps I mentioned that we would call the donor line and wait for their release of body prior to calling home. Family immediately indicated they did not wish tissue donation. I relayed this to Fishing Rod Marker Keith. Family departed hospital but expressed permission to release body to [facility].
--- NOTE | 2021-09-12 06:38 | NUR ---
DR KIMBLE CAME IN THIS AM TO PRONOUNCE
--- NOTE | 2021-09-12 07:53 | PATH ---
[facility] [address], [place] [address] Signed SPECIMEN(S): A ILEAL STRICTURE SPECIMEN SOURCE: A. ILEAL STRICTURE CLINICAL HISTORY: Small bowel obstruction. 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 - Histologic type and grade: G1, well-differentiated neuroendocrine tumor. - Histologic grade determination: - Mitotic rate: 0 mitoses per 2 mm2 - Ki-67 labeling index: Less than 3% (0.4%) - Tumor size: 1.6 x 1.3 x 1.0 cm. - Tumor focality: Unifocal. - Tumor extent: Focally invades visceral peritoneum (serosa). - Lymphovascular invasion: Not identified. - Perineural invasion: Not identified. - Large mesenteric masses: Not identified. - Margins: All margins negative for tumor. - Regional lymph nodes: Not applicable (no regional lymph nodes submitted or found). - Pathologic stage classification: (pTNM, AJCC, 8th ed.): pT4 pN not assigned (no nodes submitted or found). COMMENT: As part of [facility]' Quality Improvement Program, this case was reviewed by another member of our pathology staff. A diagnostic alert was initiated by Dr. Bland on 09/10/21. Immunohistochemical stains (with appropriately stained controls) were performed. Ki-67 labels approximately 0.4% of tumor cells of 500 cells counted. CD31 on a sales representative trainee section confirms the absence of lymphovascular invasion. NAL:mfr:C1NR MICROSCOPIC EXAMINATION: Histologic sections of all submitted blocks are examined by light microscopy. PATIENT NAME: ELISABETH GARCIA PATHOLOGY DATE OF : 50 REPORT #: [id number] PHYSICIAN: ASTRID GODWIN PCP: LADY LEONG MD REPORT IS CONFIDENTIAL AND NOT TO BE RELEASED WITHOUT AUTHORIZATION [facility] [address], [place] [address] Signed These findings, together with the gross examination, support the pathologic diagnosis. GROSS DESCRIPTION: The specimen, labeled "AW, ileal stricture," is received in formalin and consists of an irregularly-shaped segment of small bowel (4.7 cm in length and ranging in diameter from 1.8-3.8 cm) with central firm area of stricture, stapled bowel margins, and attached fat extending 2.3 cm. The dianne are removed, the mesenteric margin is inked black, one bowel margin is inked red, the opposite stapled margin is inked green, and the serosal surface surrounding the stricture is inked blue. The serosa is pink-balderrama and smooth to white-balderrama and firm at the area of stricture. The specimen is opened to reveal a white-balderrama, firm mass (1.0 x 1.6 x 1.3 cm) involving the mucosa, submucosa, muscularis and extending to the serosal surface. The mass does not grossly appear to involve the surrounding fat. The mass is located 0.5 cm from the green inked bowel margin, 0.9 cm from the red inked bowel margin, and 1.8 cm from the mesenteric margin. The mesenteric adipose is palpated and no possible lymph nodes are identified. Popcorn Machine Operator sections are submitted as follows: Cassette Summary: (A1) Mass to bowel margins, perpendicular (A2-A3) Mass to serosa and mesenteric adipose, including inked mesenteric margin (A4) Uninvolved bowel wall AC (under the direct supervision of a pathologist) The Gross Description was prepared using a voice recognition system. The report was reviewed for accuracy; however, sound-alike word errors, addition and/or deletions may occur. If there is any question about this report, please contact Client Services. ADDITIONAL NOTES: Immunohistochemical and/or in situ hybridization studies were performed on this case with the appropriate positive controls that react as expected. This test was developed and its performance characteristics determined by [facility]. It has not been cleared or approved by the U.S. Food and Drug Administration. The FDA has determined that such clearance or approval is not necessary. This test is used for clinical purposes. It should not be regarded as investigational or for research. [facility] is certified under the PATIENT NAME: ELISABETH GARCIA PATHOLOGY DATE OF : 50 REPORT #: [id number] PHYSICIAN: ASTRID GODWIN PCP: LADY LEONG MD REPORT IS CONFIDENTIAL AND NOT TO BE RELEASED WITHOUT AUTHORIZATION [address] [address] Signed Clinical Laboratory Improvement Amendments of 1988 (CLIA) as qualified to perform high complexity clinical laboratory testing. This assay has not been validated for specimens that have been decalcified. PERFORMING LABORATORY: The technical component was performed by [facility], [address] [place] [id number] (Supervisor Stave Finishing: Ella Kellogg MD; CLIA# [id number]). Professional interpretation was performed by [facility], [facility], [address] [place] [address] (CLIA# [id number]). Diagnostician: Tati Bland MD Pathologist Electronically Signed 09/12/2021 Copies: ~ PATIENT NAME: ELISABETH GARCIA PATHOLOGY DATE OF : 50 REPORT #: [id number] PHYSICIAN: Light Extraction PATHOLOGY PCP: LADY LEONG MD REPORT IS CONFIDENTIAL AND NOT TO BE RELEASED WITHOUT AUTHORIZATION
--- NOTE | 2021-09-12 13:53 | NUR ---
THIS SURVEYOR ROD HELPER CONTINUED CARE FROM SURVEYOR ROD HELPER SAIRA. MET [employer] [employer], ESCORTED TO PT'S RM. EXCHANGED PAPERWORK, ASSISTED IN TRANSFER. ESCORTED BACK TO LOADING DOC.
== END 2021-09-12 05:03 | DRG 329 ==
LOC: ED 02:06 → MS 02:07 → CCU 09:29 → MS 09:29 → CCU 09-08 15:36
PROVIDERS: ADMIT Colon & Rectal Surgery; ATTEND Colon & Rectal Surgery
PROC: 3E0336Z Introduction of Nutritional Substance into Peripheral Vein, Percutaneous Approach (ICD-10-PCS; 2021-09-08)
PROC: 5A1945Z Respiratory Ventilation, 24-96 Consecutive Hours (ICD-10-PCS; 2021-09-08)
PROC: 0DBB0ZZ Excision of Ileum, Open Approach (ICD-10-PCS; principal; 2021-09-08 12:50)
PROC: 5A09357 Assistance with Respiratory Ventilation, Less than 24 Consecutive Hours, Continuous Positive Airway Pressure (ICD-10-PCS; 2021-09-12)
DX: K56.50 Intestinal adhesions [bands], unspecified as to partial versus complete obstruction (principal); G93.41 Metabolic encephalopathy; E46 Unspecified protein-calorie malnutrition; Z20.822 Contact with and (suspected) exposure to COVID-19; Z66 Do not resuscitate; Z51.5 Encounter for palliative care; I10 Essential (primary) hypertension; M10.9 Gout, unspecified; K21.9 Gastro-esophageal reflux disease without esophagitis; E03.9 Hypothyroidism, unspecified; F41.1 Generalized anxiety disorder; E78.5 Hyperlipidemia, unspecified; D69.59 Other secondary thrombocytopenia; E66.9 Obesity, unspecified; E11.65 Type 2 diabetes mellitus with hyperglycemia; E87.6 Hypokalemia; Z68.23 Body mass index [BMI] 23.0-23.9, adult; E11.42 Type 2 diabetes mellitus with diabetic polyneuropathy; Z98.890 Other specified postprocedural states; Z87.891 Personal history of nicotine dependence; Z90.49 Acquired absence of other specified parts of digestive tract; Z90.710 Acquired absence of both cervix and uterus; Z89.421 Acquired absence of other right toe(s); Z88.8 Allergy status to other drugs, medicaments and biological substances; Z79.82 Long term (current) use of aspirin; Z79.899 Other long term (current) drug therapy
CPT/HCPCS: 00790; 36600; 71045; 74022; 74177; 80048; 80053; 80061; 80202; 81001; 82803; 83690; 83735; 84100; 84134; 85025; 85610; 85730; 86140; 88307; 88309; 88342; 88360; 93005; 93010; 94002; 94003; 94660; 96375; 97163; 99285-25; A9270; C9113; C9803; G0378; J0330; J0360; J0692; J1100; J1160; J1170; J1630; J1650; J1720; J1815; J1885; J1940; J2060; J2250; J2270; J2405; J2550; J2704; J2765; J3010; J3370; J3430; J3475; J3480; J7030; J7060; J7121; Q9967; U0003